=== PATIENT | male | born 2000 | race American Indian/Alaskan Native ===

== ENCOUNTER 2018-08-30 19:21 | Inpatient (IN) | payer MEDICAID ==
--- NOTE | 2018-08-30 19:33 | Emergency Department Report ---
Blank Doc - Documentation Documentation: This is a 18-year-old male that presents with fatigue, dizziness, and weak. T ype 1 DM and has not taken insulin for 3 days. This initial assessment/diagnostic orders/clinical plan/treatment(s) is/are subject to change based on patient's health status, clinical progression and re- assessment by fellow clinical providers in the ED. Further treatment and workup at subsequent clinical providers discretion. Patient/guardians urged not to elope from the ED as their condition may be serious if not clinically assessed and managed. Initial orders include: 1- Patient sent to MAIN ED for further evaluation and treatment 2- labs 3- UA
[2018-08-30 20:04] LABS: Basophils # (Auto) 0.1 K/mm3 (0.0-0.1); Basophils % (Auto) 0.7 % (0.0-1.8); Eosinophils % (Auto) 0.3 % (0.0-4.3); Hematocrit 47.1 % (35.5-45.6); Hemoglobin 15.5 gm/dl (11.8-15.2); Lymphocytes % (Auto) 18.7 % (13.4-35.0); Mean Corpuscular HGB Conc 33 % (32-34); Mean Corpuscular Volume 84 fl (84-94); Monocytes # (Auto) 0.7 K/mm3 (0.0-0.8); Monocytes % (Auto) 6.5 % (0.0-7.3); Platelet Count 259 K/mm3 (140-440); Red Blood Count 5.59 M/mm3 (3.65-5.03); Red Cell Distribution Width 13.7 % (13.2-15.2)
[2018-08-30 20:25] LABS: Bilirubin,Urine NEG (Negative); Blood,Urine NEG (Negative); Color,Urine Straw (Yellow); Mucus,Urine FEW /HPF; Protein,Urine <15 mg/dL mg/dL (Negative); Urobilinogen,Urine < 2.0 mg/dL (<2.0)
[2018-08-30 20:32] LABS: Alanine Aminotransferase 20 units/L (7-56); Albumin 4.9 g/dL (3.9-5); BUN/Creatinine Ratio 12; Blood Urea Nitrogen 16 mg/dL (9-20); Calcium 9.9 mg/dL (8.4-10.2); Hemolysis Index 39
[2018-08-30] MEDS ORDERED: D50W (25GM) Syringe IV PRN (20:42)
--- NOTE | 2018-08-30 20:45 | Emergency Department Report ---
HPI - General Chief Complaint: Hyperglycemia Time Seen by Provider: 08/30/18 19:32 - HPI HPI: 18-year-old -Irish male presents to the emergency department with a complaint of elevated blood sugar, dizziness, fatigue and nausea without vomiting. The patient has been without his insulin for the past 3 days and he takes Epidra and basaglar. He has just recently switched primary care physicians. He has not taken anything for his symptoms prior to presentation. No recent travel or sick contacts at home. ED Past Medical Hx - Social History Smoking Status: Never Smoker Substance Use Type: None ED Review of Systems ROS: Stated complaint: HIGH SUGAR Other details as noted in HPI Comment: All other systems reviewed and negative Constitutional: weakness. denies: chills, fever Eyes: denies: eye pain, vision change ENT: denies: ear pain, throat pain Respiratory: denies: cough, shortness of breath Cardiovascular: denies: chest pain, palpitations Endocrine: increased thirst, increased urine Gastrointestinal: nausea. denies: abdominal pain, vomiting Genitourinary: frequency. denies: dysuria Musculoskeletal: denies: back pain, arthralgia Skin: denies: rash, lesions Neurological: other (dizziness). denies: headache Physical Exam - Physical Exam Vital Signs: Vital Signs 08/30/18 19:30 Temperature 98.4 F Pulse Rate 92 H Respiratory 18 Rate Blood Pressure 127/55 O2 Sat by Pulse 100 Oximetry Physical Exam: GENERAL: The patient is well-developed well-nourished. HENT: Normocephalic. Atraumatic. Patient has moist mucous membranes. EYES: Extraocular motions are intact. NECK: Supple. Trachea is midline. CHEST/LUNGS: Clear to auscultation. There is no respiratory distress noted. HEART/CARDIOVASCULAR: Regular. There is no tachycardia. There is no murmur. ABDOMEN: Abdomen is soft, nontender. Patient has normal bowel sounds. There is no abdominal distention. SKIN: Skin is warm and dry. NEURO: The patient is awake, alert, and oriented. The patient is cooperative. The patient has no focal neurologic deficits. The patient has normal speech. Cranial nerves II through XII grossly intact. MUSCULOSKELETAL: There is no tenderness or deformity. There is no limitation range of motion. There is no evidence of acute injury. ED Course Vital Signs 08/30/18 19:30 Temperature 98.4 F Pulse Rate 92 H Respiratory 18 Rate Blood Pressure 127/55 O2 Sat by Pulse 100 Oximetry ED Medical Decision Making - Lab Data Result diagrams: 08/30/18 19:40 08/30/18 20:46 - Medical Decision Making Patient presents with the complaint of hyperglycemia, dizziness, fatigue and nausea without vomiting. He has been without his diabetes medication for the past 3-4 days. He appears to be in diabetic ketoacidosis with hyperglycemia, elevated anion gap of 34 and venous acidosis of 7.27. Patient was started on insulin drip and will be admitted to the hospitalist service. Accepted for admission by the hospitalist, Dr. Mccartney. - Differential Diagnosis DKA, HHNK, Diabetic Hyperglycemia, Electrolyte abnormalities, dehydration Critical Care Time: No Critical care attestation.: If time is entered above; I have spent that time in minutes in the direct care of this critically ill patient, excluding procedure time. ED Disposition Clinical Impression: Hyperglycemia, High anion gap metabolic acidosis Diabetic ketoacidosis Qualifiers: Diabetes mellitus type: type 1 Diabetes mellitus complication detail: without coma Qualified Code(s): E10.10 - Type 1 diabetes mellitus with ketoacidosis without coma Disposition: OP ADMIT IP TO THIS HOSP Is pt being admited?: Yes Condition: Fair Instructions: Diabetic Ketoacidosis (ED) Time of Disposition: 21:45
[2018-08-30] MEDS ORDERED: D5NS 1,000 ML IV SCH (21:00)
[2018-08-30] MEDS ORDERED: HumuLIN R 100 UNITS in NACL 0.9% 99 ML IV SCH (21:00)
[2018-08-30 21:23] LABS: BUN/Creatinine Ratio 13; Blood Urea Nitrogen 16 mg/dL (9-20); Calcium 9.8 mg/dL (8.4-10.2); Hemolysis Index 15
[2018-08-30] MEDS ORDERED: ZOFRAN IV PRN (21:38)
[2018-08-30] MEDS ORDERED: TYLENOL PO PRN (21:38)
[2018-08-30] MEDS ORDERED: SODIUM CHLORIDE FLUSH SYRINGE 10 ML IV PRN (21:38)
--- NOTE | 2018-08-30 21:53 | History and Physical Report ---
History of Present Illness Chief complaint: Weakness since running out of insulin History of present illness: a 18-year-old man with history of type 1 diabetes. States that he has been out of insulin for 3 days he now presents to the hospital with weakness, polyuria polydipsia, thirst, fatigue dizziness. The patient denies fever, dysuria, cough or pain anywhere. He denies vomiting. He states that he ran out of insulin. He asked his physician to call them in, but his doctor insisted that he come in to clinic and be seen, as he has not followed up in some time. Patient states that he was somewhat careless as he couldn't get an appointment so he just let it slide. Until he started getting very sick prompting him to come into the hospital Patient takes basaglar 50 bid and apidra 20 units ac at home Past medical history type 1 diabetes, insulin-dependent Past surgical history; denies any major surgeries Social history; ongoing smoking of tobacco, denies etoh abuse or illicit drug use Family history; denies any familial diseases Constitutional: no fever, no chills, no night sweats, Generalized weakness, polyuria polydipsia Eyes: bilateral: other (no complaint of visual problems.) Ears, nose, mouth and throat: mouth pain, no ear pain, no ear discharge, no decreased hearing, no nose pain, no nasal congestion, no bleeding gums, no dental pain, no dysphagia, no hoarseness, no sore throat Cardiovascular: no orthopnea, no palpitations, no rapid/irregular heart beat, no phlebitis Respiratory: no cough with sputum, no excessive sputum, no hemoptysis, no wheezing, no pleurisy, no pain Gastrointestinal: abdominal pain, nausea, no vomiting, no diarrhea, no hematochezia, no loss of appetite Rectal: no pain, no incontinence, no bleeding Musculoskeletal: no neck stiffness, no neck pain, no shooting arm pain, no arm numbness/tingling, no low back pain, no shooting leg pain, no leg numbness/tingling Integumentary: no pruritis, no redness, no sores Neurological: no transient paralysis, no paralysis, no weakness Psychiatric: no memory loss, no change in sleep habits, no disorientation Endocrine: no heat intolerance, no polyphagia Hematologic/Lymphatic: no easy bruising, no easy bleeding Allergic/Immunologic: no allergic rhinitis Medications and Allergies Allergies Allergy/AdvReac Type Severity Reaction Status Date / Time No Known Allergies Allergy Verified 08/30/18 20:48 Active Meds: Active Medications Acetaminophen (Tylenol) 650 mg PO Q4H PRN PRN Reason: Pain MILD(1-3)/Fever >100.5/HALL Dextrose (D50w (25gm) Syringe) 0 ml IV PRN PRN PRN Reason: Hypoglycemia Insulin Human Regular 100 (units/ Sodium Chloride) 100 mls @ 5 mls/hr IV TITR FAN; Protocol Last Admin: 08/30/18 21:24 Dose: 5 units/hr, 5 mls/hr Documented by: Sodium Chloride (Nacl 0.9% 1000 Ml) 1,000 mls @ 150 mls/hr IV DIRECT FAN Ceftriaxone Sodium (Rocephin/Ns 1 Gm/50 Ml) 1 gm in 50 mls @ 100 mls/hr IV Q24HR FAN; Protocol Stop: 09/04/18 21:59 Ondansetron HCl (Zofran) 4 mg IV Q4H PRN PRN Reason: Nausea And Vomiting Sodium Chloride (Sodium Chloride Flush Syringe 10 Ml) 10 ml IV BID FAN Sodium Chloride (Sodium Chloride Flush Syringe 10 Ml) 10 ml IV PRN PRN PRN Reason: LINE FLUSH Exam - Constitutional Vitals: Temp Pulse Resp BP Pulse Ox 98.4 F 92 H 16 127/55 99 08/30/18 19:30 08/30/18 19:30 08/30/18 20:43 08/30/18 19:30 08/30/18 20:43 General appearance: Present: mild distress, well-nourished - EENT Eyes: Present: PERRL ENT: hearing intact, clear oral mucosa (dry mucous membranes) - Neck Neck: Present: supple, normal ROM - Respiratory Respiratory effort: normal Respiratory: bilateral: CTA - Cardiovascular Heart Sounds: Present: S1 & S2. Absent: rub, click - Extremities Extremities: pulses symmetrical, No edema Peripheral Pulses: within normal limits - Abdominal General gastrointestinal: Present: soft, non-tender, non-distended, normal bowel sounds Male genitourinary: Present: normal - Integumentary Integumentary: Present: clear, warm, dry - Musculoskeletal Musculoskeletal: gait normal, strength equal bilaterally - Psychiatric Psychiatric: appropriate mood/affect, intact judgment & insight - Neurologic Neurologic: CNII-XII intact, moves all extremities Results - Labs CBC & Chem 7: 08/30/18 19:40 08/30/18 23:25 Labs: Laboratory Last Values WBC 10.6 K/mm3 (4.5-11.0) 08/30/18 19:40 RBC 5.59 M/mm3 (3.65-5.03) H 08/30/18 19:40 Hgb 15.5 gm/dl (11.8-15.2) H 08/30/18 19:40 Hct 47.1 % (35.5-45.6) H 08/30/18 19:40 MCV 84 fl (84-94) 08/30/18 19:40 MCH 28 pg (28-32) 08/30/18 19:40 MCHC 33 % (32-34) 08/30/18 19:40 RDW 13.7 % (13.2-15.2) 08/30/18 19:40 Plt Count 259 K/mm3 (140-440) 08/30/18 19:40 Lymph % (Auto) 18.7 % (13.4-35.0) 08/30/18 19:40 Alexander % (Auto) 6.5 % (0.0-7.3) 08/30/18 19:40 Eos % (Auto) 0.3 % (0.0-4.3) 08/30/18 19:40 Baso % (Auto) 0.7 % (0.0-1.8) 08/30/18 19:40 Lymph # 2.0 K/mm3 (1.2-5.4) 08/30/18 19:40 Alexander # 0.7 K/mm3 (0.0-0.8) 08/30/18 19:40 Eos # 0.0 K/mm3 (0.0-0.4) 08/30/18 19:40 Baso # 0.1 K/mm3 (0.0-0.1) 08/30/18 19:40 Seg Neutrophils % 73.8 % (40.0-70.0) H 08/30/18 19:40 Seg Neutrophils # 7.8 K/mm3 (1.8-7.7) H 08/30/18 19:40 VBG pH 7.270 (7.320-7.420) L 08/30/18 19:40 Sodium 127 mmol/L (137-145) L 08/30/18 20:46 Potassium 4.8 mmol/L (3.6-5.0) 08/30/18 20:46 Chloride 83.0 mmol/L (98-107) L 08/30/18 20:46 Carbon Dioxide 16 mmol/L (22-30) L 08/30/18 20:46 33 mmol/L 08/30/18 20:46 BUN 16 mg/dL (9-20) 08/30/18 20:46 1.2 mg/dL (0.8-1.5) 08/30/18 20:46 Estimated GFR > 60 ml/min 08/30/18 20:46 13 % 08/30/18 20:46 Glucose 357 mg/dL (75-100) H 08/30/18 20:46 POC Glucose 298 (70-105) H 08/30/18 21:17 Calcium 9.8 mg/dL (8.4-10.2) 08/30/18 20:46 Phosphorus 3.50 mg/dL (2.5-4.5) 08/30/18 20:46 Magnesium 1.90 mg/dL (1.7-2.3) 08/30/18 20:46 1.70 mg/dL (0.1-1.2) H 08/30/18 19:40 AST 22 units/L (5-40) 08/30/18 19:40 ALT 20 units/L (7-56) 08/30/18 19:40 80 units/L (35-129) 08/30/18 19:40 8.4 g/dL (6.3-8.2) H 08/30/18 19:40 4.9 g/dL (3.9-5) 08/30/18 19:40 1.4 % 08/30/18 19:40 Straw (Yellow) 08/30/18 20:10 Clear (Clear) 08/30/18 20:10 5.0 (5.0-7.0) 08/30/18 20:10 Ur Specific [place] 1.028 (1.003-1.030) 08/30/18 20:10 <15 mg/dl mg/dL (Negative) 08/30/18 20:10 >=500 mg/dL (Negative) 08/30/18 20:10 80 mg/dL (Negative) 08/30/18 20:10 Neg (Negative) 08/30/18 20:10 Neg (Negative) 08/30/18 20:10 Neg (Negative) 08/30/18 20:10 < 2.0 mg/dL (<2.0) 08/30/18 20:10 Ur Leukocyte Esterase Neg (Negative) 08/30/18 20:10 12.0 /HPF (0.0-6.0) H 08/30/18 20:10 1.0 /HPF (0.0-6.0) 08/30/18 20:10 Few /HPF 08/30/18 20:10 Assessment and Plan Assessment and plan: 19-year-old man who presents with DKA after running out of insulin 3 days UA shows 10 white blood cells Diagnosis Type 1 diabetes, insulin-dependent with DKA UTI?, Mild pyuria non adherence; counseled > 17 mins on preventative health tobacco abuse, counseled > 10 mins on cessation Plan IV fluids, insulin drip, DKA protocol Follow-up urine culture, empiric Rocephin until urine culture is resulted DVT prophylaxis; early ambulation Critical care time 35 minutes
[2018-08-30] MEDS ORDERED: ROCEPHIN/NS 1 GM/50 ML 1 GM/50 ML BAG IV SCH (22:00)
[2018-08-30] MEDS ORDERED: NACL 0.9% 1000 ML 1,000 ML IV SCH (22:00)
[2018-08-30] MEDS: SODIUM CHLORIDE FLUSH SYRINGE 10 ML IV SCH (22:29)
[2018-08-30] MEDS ORDERED: ROCEPHIN/NS 1 GM/50 ML 1 GM/50 ML BAG IV ONE (22:38)
[2018-08-30] MEDS ORDERED: NACL 0.9% 1000 ML 1,000 ML ONE (22:59)
[2018-08-30] MEDS ORDERED: D5/0.45NS 1,000 ML IV SCH (23:00)
[2018-08-31 00:53] LABS: BUN/Creatinine Ratio 12; Blood Urea Nitrogen 14 mg/dL (9-20); Calcium 9.9 mg/dL (8.4-10.2); Hemolysis Index 5
[2018-08-31] MEDS ORDERED: LANTUS SUB-Q SCH (04:07)
[2018-08-31] MEDS ORDERED: NACL 0.9% 1000 ML 1,000 ML IV SCH (05:00)
[2018-08-31 06:48] LABS: BUN/Creatinine Ratio 12; Blood Urea Nitrogen 13 mg/dL (9-20); Calcium 9.1 mg/dL (8.4-10.2); Hemolysis Index 4
[2018-08-31] MEDS ORDERED: HumaLOG SUB-Q SCH ×2 (07:30)
[2018-08-31] MEDS ORDERED: K-DUR PO NR (08:37)
--- NOTE | 2018-08-31 09:23 | Discharge Summary ---
Providers - Providers Date of Admission: 08/30/18 21:39 Attending physician: ALDO LOPEZ MD 08/30/18 21:38 Consult to Physician [CONS] Routine Comment: Consulting Provider: DIANNA ALLEN Physician Instructions: Reason For Exam: icu care 08/30/18 21:42 Consult to Dietitian/Nutrition [CONS] Routine Physician Instructions: Reason For Exam: Reason for Consult: Diet education Primary care physician: JEREMIAS FELIX Hospitalization Reason for admission: DKA Condition: Fair Hospital course: a 18-year-old man with history of type 1 diabetes. States that he has been out of insulin for 3 days he now presents to the hospital with weakness, polyuria polydipsia, thirst, fatigue dizziness. The patient denies fever, dysuria, cough or pain anywhere. He denies vomiting. He states that he ran out of insulin. He asked his physician to call them in, but his doctor insisted that he come in to clinic and be seen, as he has not followed up in some time. Patient states that he was somewhat careless as he couldn't get an appointment so he just let it slide. Until he started getting very sick prompting him to come into the hospital. Patient was admitted to ICU and was treated for DKA according to DKA protocol . Anion gap resolved and patient was doing well and discharged home. I refill his home insulin regimen but he couldn't afford and change to 70/30. advised to have follow up with PCP. Disposition: DC-01 TO HOME OR SELFCARE Time spent for discharge: 32 minutes - Discharge Diagnoses (1) Diabetic ketoacidosis Status: Acute (2) High anion gap metabolic acidosis Status: Acute (3) Hyperglycemia Status: Acute Core Measure Documentation - Palliative Care Palliative Care/ Comfort Measures: Not Applicable - Core Measures Any of the following diagnoses?: none Exam - Constitutional Vitals: Temp Pulse Resp BP Pulse Ox 97.6 F 69 12 112/55 100 08/31/18 08:00 08/31/18 08:41 08/31/18 08:41 08/31/18 08:41 08/30/18 23:00 General appearance: Present: no acute distress, well-nourished - EENT Eyes: Present: PERRL ENT: hearing intact, clear oral mucosa - Neck Neck: Present: supple, normal ROM - Respiratory Respiratory effort: normal Respiratory: bilateral: CTA - Cardiovascular Heart Sounds: Present: S1 & S2. Absent: rub, click - Extremities Extremities: pulses symmetrical, No edema Peripheral Pulses: within normal limits - Abdominal General gastrointestinal: Present: soft, non-tender, non-distended, normal bowel sounds - Integumentary Integumentary: Present: clear, warm, dry - Musculoskeletal Musculoskeletal: gait normal, strength equal bilaterally - Psychiatric Psychiatric: appropriate mood/affect, intact judgment & insight - Neurologic Neurologic: CNII-XII intact, moves all extremities Plan Activity: no restrictions Weight Bearing Status: Full Weight Bearing Diet: diabetic Follow up with: JEREMIAS FELIX MD [Primary Care Provider] - 3-5 Days
[2018-08-31] MEDS: SODIUM CHLORIDE FLUSH SYRINGE 10 ML IV SCH (10:00)
[2018-08-31 10:30] VITALS: BP 128/63
--- NOTE | 2018-08-31 11:01 | Consultation ---
History of Present Illness - Reason for Consult Consult date: 08/31/18 DKA Requesting physician: ALDO LOPEZ - History of Present Illness 18 y/o male admitted with DKA. Past History Past Medical History: diabetes Past Surgical History: No surgical history Social history: no significant social history Family history: no significant family history Medications and Allergies Allergies Allergy/AdvReac Type Severity Reaction Status Date / Time No Known Allergies Allergy Verified 08/30/18 20:48 Home Medications Medication Instructions Recorded Confirmed Last Taken Type Insulin Glargine,Hum.rec.anlog 50 unit SQ BID #1 insuln.pen 08/31/18 Unknown Rx [Basaglar Kwikpen U-100] Insulin Glulisine [Apidra] 20 units MC AC #2 vial 08/31/18 Unknown Rx Active Meds: Active Medications Acetaminophen (Tylenol) 650 mg PO Q4H PRN PRN Reason: Pain MILD(1-3)/Fever >100.5/HALL Dextrose (D50w (25gm) Syringe) 0 ml IV PRN PRN PRN Reason: Hypoglycemia Ceftriaxone Sodium (Rocephin/Ns 1 Gm/50 Ml) 1 gm in 50 mls @ 100 mls/hr IV Q24H [facility]; Protocol Last Infusion: 08/30/18 23:08 Dose: Infused Documented by: Sodium Chloride (Nacl 0.9% 1000 Ml) 1,000 mls @ 150 mls/hr IV DIRECT [facility] Last Admin: 08/31/18 05:45 Dose: 150 mls/hr Documented by: Insulin Glargine (Lantus) 50 units SUB-Q BID [facility] Last Admin: 08/31/18 05:42 Dose: 50 units Documented by: Insulin Human Lispro (Humalog) 20 unit SUB-Q AC FAN Last Admin: 08/31/18 07:30 Dose: 20 unit Documented by: Insulin Human Lispro (Humalog) 0 unit SUB-Q ACHS [facility]; Protocol Last Admin: 08/31/18 07:30 Dose: Not Given Documented by: Ondansetron HCl (Zofran) 4 mg IV Q4H PRN PRN Reason: Nausea And Vomiting Sodium Chloride (Sodium Chloride Flush Syringe 10 Ml) 10 ml IV BID [facility] Last Admin: 08/30/18 22:29 Dose: 10 ml Documented by: Sodium Chloride (Sodium Chloride Flush Syringe 10 Ml) 10 ml IV PRN PRN PRN Reason: LINE FLUSH Review of Systems All systems: negative Exam - Constitutional Vitals: Temp Pulse Resp BP Pulse Ox 97.6 F 73 17 128/63 100 08/31/18 08:00 08/31/18 10:21 08/31/18 10:21 08/31/18 10:08/30/18 23:00 General appearance: Present: no acute distress - EENT Eyes: Present: PERRL, EOM intact ENT: hearing intact, clear oral mucosa - Neck Neck: Present: supple, normal ROM - Respiratory Respiratory effort: normal Respiratory: bilateral: CTA - Cardiovascular Rhythm: regular Heart Sounds: Present: S1 & S2 - Abdominal General gastrointestinal: Present: soft, non-tender, normal bowel sounds Results - Labs CBC & Chem 7: 08/30/18 19:40 08/31/18 05:00 Labs: Abnormal lab results 08/30/18 08/30/18 08/30/18 Range/Units 19:37 19:40 19:40 RBC 5.59 H (3.65-5.03) M/mm3 Hgb 15.5 H (11.8-15.2) gm/dl Hct 47.1 H (35.5-45.6) % Seg Neutrophils % 73.8 H (40.0-70.0) % Seg Neutrophils # 7.8 H (1.8-7.7) K/mm3 VBG pH (7.320-7.420) Sodium 129 L (137-145) mmol/L Potassium (3.6-5.0) mmol/L Chloride 82.2 L (98-107) mmol/L Carbon Dioxide 17 L (22-30) mmol/L Glucose 375 H (75-100) mg/dL POC Glucose 332 H (70-105) Hemoglobin A1c (4-6) % Total Bilirubin 1.70 H (0.1-1.2) mg/dL Total Protein 8.4 H (6.3-8.2) g/dL Urine WBC (Auto) (0.0-6.0) /HPF 08/30/18 08/30/18 08/30/18 Range/Units 19:40 20:10 20:46 RBC (3.65-5.03) M/mm3 Hgb (11.8-15.2) gm/dl Hct (35.5-45.6) % Seg Neutrophils % (40.0-70.0) % Seg Neutrophils # (1.8-7.7) K/mm3 VBG pH 7.270 L (7.320-7.420) Sodium 127 L (137-145) mmol/L Potassium (3.6-5.0) mmol/L Chloride 83.0 L (98-107) mmol/L Carbon Dioxide 16 L (22-30) mmol/L Glucose 357 H (75-100) mg/dL POC Glucose (70-105) Hemoglobin A1c (4-6) % Total Bilirubin (0.1-1.2) mg/dL Total Protein (6.3-8.2) g/dL Urine WBC (Auto) 12.0 H (0.0-6.0) /HPF 08/30/18 08/30/18 08/30/18 Range/Units 21:17 22:34 23:25 RBC (3.65-5.03) M/mm3 Hgb (11.8-15.2) gm/dl Hct (35.5-45.6) % Seg Neutrophils % (40.0-70.0) % Seg Neutrophils # (1.8-7.7) K/mm3 VBG pH (7.320-7.420) Sodium (137-145) mmol/L Potassium (3.6-5.0) mmol/L Chloride 92.0 L (98-107) mmol/L Carbon Dioxide 21 L (22-30) mmol/L Glucose 175 H (75-100) mg/dL POC Glucose 298 H 278 H (70-105) Hemoglobin A1c (4-6) % Total Bilirubin (0.1-1.2) mg/dL Total Protein (6.3-8.2) g/dL Urine WBC (Auto) (0.0-6.0) /HPF 08/30/18 08/30/18 08/31/18 Range/Units 23:25 23:30 01:37 RBC (3.65-5.03) M/mm3 Hgb (11.8-15.2) gm/dl Hct (35.5-45.6) % Seg Neutrophils % (40.0-70.0) % Seg Neutrophils # (1.8-7.7) K/mm3 VBG pH (7.320-7.420) Sodium (137-145) mmol/L Potassium (3.6-5.0) mmol/L Chloride (98-107) mmol/L Carbon Dioxide (22-30) mmol/L Glucose (75-100) mg/dL POC Glucose 192 H 190 H (70-105) Hemoglobin A1c 16.1 H (4-6) % Total Bilirubin (0.1-1.2) mg/dL Total Protein (6.3-8.2) g/dL Urine WBC (Auto) (0.0-6.0) /HPF 08/31/18 08/31/18 08/31/18 Range/Units 03:28 04:27 05:00 RBC (3.65-5.03) M/mm3 Hgb (11.8-15.2) gm/dl Hct (35.5-45.6) % Seg Neutrophils % (40.0-70.0) % Seg Neutrophils # (1.8-7.7) K/mm3 VBG pH (7.320-7.420) Sodium 136 L (137-145) mmol/L Potassium 3.2 L D (3.6-5.0) mmol/L Chloride 94.9 L (98-107) mmol/L Carbon Dioxide (22-30) mmol/L Glucose 149 H (75-100) mg/dL POC Glucose 183 H 124 H (70-105) Hemoglobin A1c (4-6) % Total Bilirubin (0.1-1.2) mg/dL Total Protein (6.3-8.2) g/dL Urine WBC (Auto) (0.0-6.0) /HPF 08/31/18 08/31/18 Range/Units 05:40 06:25 RBC (3.65-5.03) M/mm3 Hgb (11.8-15.2) gm/dl Hct (35.5-45.6) % Seg Neutrophils % (40.0-70.0) % Seg Neutrophils # (1.8-7.7) K/mm3 VBG pH (7.320-7.420) Sodium (137-145) mmol/L Potassium (3.6-5.0) mmol/L Chloride (98-107) mmol/L Carbon Dioxide (22-30) mmol/L Glucose (75-100) mg/dL POC Glucose 192 H 181 H (70-105) Hemoglobin A1c (4-6) % Total Bilirubin (0.1-1.2) mg/dL Total Protein (6.3-8.2) g/dL Urine WBC (Auto) (0.0-6.0) /HPF Assessment and Plan 18 y/o male with DKA 1. Off insulin drip. Secondary to hypoglycemia. Gap based on last BMP has not closed but patient has eaten and tolerated breakfast 2. Patient discharged via IMS service 3. Needs diabetic education and counseling.
== END 2018-08-31 11:00 | disposition home or self-care (01) | DRG 638 ==
LOC: ED 19:21 → CC1 21:39
PROVIDERS: ADMIT Internal Medicine; ATTEND Internal Medicine
DX: E10.10 Type 1 diabetes mellitus with ketoacidosis without coma (principal); N39.0 Urinary tract infection, site not specified; F17.200 Nicotine dependence, unspecified, uncomplicated; Z71.6 Tobacco abuse counseling; Z79.4 Long term (current) use of insulin
CPT/HCPCS: 36415; 80048; 80053; 81001; 82805; 82962; 83036; 83735; 84100; 85025; 87086; G0378; J0696; J1815; J7030; J7042

== ENCOUNTER 2018-09-03 11:17 | Inpatient (IN) | payer MEDICAID ==
[2018-09-03] MEDS ORDERED: NACL 0.9% 1000 ML 2,000 ML IV ONE (11:30)
--- NOTE | 2018-09-03 11:32 | Event Note ---
ED Screening Note Date of service: 09/03/18 Time: 11:27 ED Screening Note: 18 y/o male Type 1 DM comes in for elevated blood sugar. has not been taking his insulin. This initial assessment/diagnostic orders/clinical plan/treatment(s) is/are subject to change based on patients health status, clinical progression and re- assessment by fellow clinical providers in the ED. Further treatment and workup at subsequent clinical providers discretion. Patient/guardian urged not to elope from the ED as their condition may be serious if not clinically assessed and managed. Initial orders include:
[2018-09-03] MEDS ORDERED: ZOFRAN IV ONE (11:56)
--- NOTE | 2018-09-03 11:57 | Emergency Department Report ---
ED General Adult HPI - General Chief complaint: Hyperglycemia Stated complaint: SUGAR HIGH Time Seen by Provider: 09/03/18 11:26 Source: patient, RN notes reviewed, old records reviewed Mode of arrival: Ambulatory Limitations: Physical Limitation - History of Present Illness Initial comments: This is a 18-year-old gentleman, who is not known to this provider previously. The patient reportedly has a past medical history of type 1 diabetes. The patient was recently admitted to this hospital for diabetic ketoacidosis. He was treated as for the DKA protocol. He was subsequently discharged with prescriptions for insulin apidra and insulin glargine. He states that the insulin apidra was not covered by his insurance company, and the prescription was switched to Humulin 70/30. He reports that he was not discharged with needles, and he was not able to give himself his insulin. He reports that he was able to get his glargine insulin prescription filled this morning, gave himself 60 units this morning. He presents to the emergency room with a complaint of nausea, vomiting, resolved shortness of breath, and weakness. His nausea intermittent, emesis is nonbloody, nonbilious. He endorses no fever, no nasal bleeding, positive palpitations, resolved shortness of breath, no irritative urinary symptoms, no leg pain, no leg swelling. He was given IV fluids and nausea medicine in the emergency room, which improved his symptoms. His symptoms have been constant since 5:00 this morning, they're painless, and they do not radiate anywhere. Th ere is no posterior leg pain or leg swelling. -: Sudden Quality: other Consistency: now resolved Improves with: movement Worsens with: other - Related Data Home Medications Medication Instructions Recorded Confirmed Last Taken Insulin Glargine,Hum.rec.anlog 50 unit SUB-Q BID 09/03/18 09/03/18 Unknown [Basaglar Kwikpen U-100] Insulin NPH Hum/Reg Insulin Hm 50 units SUB-Q BID 09/03/18 09/03/18 Unknown [HumuLIN 70-30 Vial] Allergies Allergy/AdvReac Type Severity Reaction Status Date / Time No Known Allergies Allergy Verified 09/03/18 11:18 ED Review of Systems ROS: Stated complaint: SUGAR HIGH Other details as noted in HPI Constitutional: malaise, weakness Eyes: denies: eye discharge ENT: denies: epistaxis Respiratory: shortness of breath Cardiovascular: palpitations Gastrointestinal: nausea, vomiting Genitourinary: denies: dysuria Musculoskeletal: denies: back pain, arthralgia, myalgia Skin: denies: lesions Neurological: weakness Psychiatric: anxiety ED Past Medical Hx - Past Medical History Hx Congestive Heart Failure: No Hx Diabetes: Yes Hx Asthma: No Hx COPD: No - Surgical History Past Surgical History?: No - Social History Smoking Status: Never Smoker Substance Use Type: None - Medications Home Medications: Home Medications Medication Instructions Recorded Confirmed Last Taken Type Insulin Glargine,Hum.rec.anlog 50 unit SUB-Q BID 09/03/18 09/03/18 Unknown History [Basaglar Kwikpen U-100] Insulin NPH Hum/Reg Insulin Hm 50 units SUB-Q BID 09/03/18 09/03/18 Unknown History [HumuLIN 70-30 Vial] ED Physical Exam - General Limitations: No Limitations General appearance: alert, anxious, in distress - Head Head exam: Present: atraumatic, normocephalic - Eye Eye exam: Present: normal appearance, EOMI. Absent: nystagmus - ENT ENT exam: Present: normal orophraynx, mucous membranes dry, normal external ear exam - Neck Neck exam: Present: normal inspection, full ROM. Absent: tenderness, m eningismus - Respiratory Respiratory exam: Present: normal lung sounds bilaterally. Absent: respiratory distress - Cardiovascular Cardiovascular Exam: Present: normal rhythm, tachycardia, normal heart sounds. Absent: systolic murmur, diastolic murmur, rubs, gallop - GI/Abdominal GI/Abdominal exam: Present: soft. Absent: distended, tenderness, guarding, rebound, rigid, pulsatile mass - Rectal Rectal exam: Present: deferred - Extremities Exam Extremities exam: Present: normal inspection, full ROM, other (2+ pulses noted in the bilateral upper, lower extremities. Compartments soft. No long bony t enderness. The pelvis is stable.). Absent: pedal edema, joint swelling, calf tenderness - Back Exam Back exam: Present: normal inspection, full ROM. Absent: tenderness, CVA tenderness (R), CVA tenderness (L), paraspinal tenderness, vertebral tenderness - Neurological Exam Neurological exam: Present: alert, oriented X3, other (Extraocular movements intact. Tongue midline. No facial droop. Facial sensation intact to light touch in the V1, V2, V3 distribution bilaterally. 5 and 5 strength in 4 extremities.. Sensation is intact to light touch in 4 extremities.). Absent: motor sensory deficit - Psychiatric Psychiatric exam: Present: anxious - Skin Skin exam: Present: warm, dry, intact, normal color. Absent: rash ED Course Vital Signs 09/03/18 09/03/18 09/03/18 11:26 11:34 11:45 Temperature 97.5 F L Pulse Rate 104 H 89 Respiratory 18 25 H Rate Blood Pressure 128/54 132/73 O2 Sat by Pulse 98 99 100 Oximetry 09/03/18 09/03/18 09/03/18 12:00 12:15 12:30 Temperature Pulse Rate 82 79 79 Respiratory 24 24 26 H Rate Blood Pressure 136/66 129/56 132/58 O2 Sat by Pulse 100 94 100 Oximetry 09/03/18 09/03/18 09/03/18 12:45 13:00 13:15 Temperature Pulse Rate 85 82 80 Respiratory 22 21 19 Rate Blood Pressure 132/61 136/63 132/62 O2 Sat by Pulse 100 100 100 Oximetry 09/03/18 13:30 Temperature Pulse Rate 84 Respiratory 21 Rate Blood Pressure 129/66 O2 Sat by Pulse 100 Oximetry - Consultations Consultation #1: 09/03/18 14:11 Dr Walker agrees with management ED Medical Decision Making - Lab Data Result diagrams: 09/03/18 11:37 09/03/18 13:00 Vital Signs 09/03/18 09/03/18 09/03/18 11:26 11:34 11:45 Temperature 97.5 F L Pulse Rate 104 H 89 Respiratory 18 25 H Rate Blood Pressure 128/54 132/73 O2 Sat by Pulse 98 99 100 Oximetry Lab Results 09/03/18 09/03/18 09/03/18 Range/Units 11:28 11:37 11:37 WBC 11.1 H (4.5-11.0) K/mm3 RBC 5.90 H (3.65-5.03) M/mm3 Hgb 16.3 H (11.8-15.2) gm/dl Hct 50.2 H (35.5-45.6) % MCV 85 (84-94) fl MCH 28 (28-32) pg MCHC 33 (32-34) % RDW 14.2 (13.2-15.2) % Plt Count 313 (140-440) K/mm3 Lymph % (Auto) 13.2 L (13.4-35.0) % [place] % (Auto) 5.2 (0.0-7.3) % Eos % (Auto) 0.1 (0.0-4.3) % Baso % (Auto) 0.5 (0.0-1.8) % Lymph # 1.5 (1.2-5.4) K/mm3 [place] # 0.6 (0.0-0.8) K/mm3 Eos # 0.0 (0.0-0.4) K/mm3 Baso # 0.1 (0.0-0.1) K/mm3 Seg Neutrophils % 81.0 H (40.0-70.0) % Seg Neutrophils # 9.0 H (1.8-7.7) K/mm3 VBG pH (7.320-7.420) Sodium 136 L (137-145) mmol/L Potassium 5.0 D (3.6-5.0) mmol/L Chloride 88.4 L (98-107) mmol/L Carbon Dioxide 9 L* D (22-30) mmol/L Anion Gap 44 mmol/L BUN 21 H (9-20) mg/dL Creatinine 1.6 H (0.8-1.5) mg/dL Estimated GFR > 60 ml/min BUN/Creatinine Ratio 13 % Glucose 478 H (75-100) mg/dL POC Glucose 410 H (70-105) Calcium 10.3 H (8.4-10.2) mg/dL Magnesium 2.10 (1.7-2.3) mg/dL Total Bilirubin 1.00 (0.1-1.2) mg/dL AST 18 (5-40) units/L ALT 20 (7-56) units/L Alkaline Phosphatase 87 (35-129) units/L Total Creatine Kinase 305 H (55-170) units/L Total Protein 8.6 H (6.3-8.2) g/dL Albumin 5.0 (3.9-5) g/dL Albumin/Globulin Ratio 1.4 % 09/03/18 Range/Units 11:37 WBC (4.5-11.0) K/mm3 RBC (3.65-5.03) M/mm3 Hgb (11.8-15.2) gm/dl Hct (35.5-45.6) % MCV (84-94) fl MCH (28-32) pg MCHC (32-34) % RDW (13.2-15.2) % Plt Count (140-440) K/mm3 Lymph % (Auto) (13.4-35.0) % [place] % (Auto) (0.0-7.3) % Eos % (Auto) (0.0-4.3) % Baso % (Auto) (0.0-1.8) % Lymph # (1.2-5.4) K/mm3 [place] # (0.0-0.8) K/mm3 Eos # (0.0-0.4) K/mm3 Baso # (0.0-0.1) K/mm3 Seg Neutrophils % (40.0-70.0) % Seg Neutrophils # (1.8-7.7) K/mm3 VBG pH 7.173 L* (7.320-7.420) Sodium (137-145) mmol/L Potassium (3.6-5.0) mmol/L Chloride (98-107) mmol/L Carbon Dioxide (22-30) mmol/L Anion Gap mmol/L BUN (9-20) mg/dL Creatinine (0.8-1.5) mg/dL Estimated GFR ml/min BUN/Creatinine Ratio % Glucose (75-100) mg/dL POC Glucose (70-105) Calcium (8.4-10.2) mg/dL Magnesium (1.7-2.3) mg/dL Total Bilirubin (0.1-1.2) mg/dL AST (5-40) units/L ALT (7-56) units/L Alkaline Phosphatase (35-129) units/L Total Creatine Kinase (55-170) units/L Total Protein (6.3-8.2) g/dL Albumin (3.9-5) g/dL Albumin/Globulin Ratio % - EKG Data -: EKG Interpreted by Mn EKG shows normal: sinus rhythm Rate: normal - EKG Data 09/03/18 13:12 This is a normal sinus rhythm, 75 bpm, normal axis, normal intervals, high left ventricular voltage, there is no endorsement of chest pain, this EKG is not consistent with ST elevation myocardial infarction. - Radiology Data Radiology results: report reviewed, image reviewed X-ray of the chest is negative for acute disease - Medical Decision Making Differential diagnosis, including but not limited to: Diabetic ketoacidosis, dehydration, electrolyte derangement, medication noncompliance secondary to insurance issues Assessment and plan: 18-year-old gentleman, with resolved tachycardia, not hypoxic, low risk by well's criteria, no leg pain, no leg swelling, no physical exam evidence to support DVT, with evidence of diabetic ketoacidosis, manifested by tachycardia, anion gap acidosis of 44, bicarbonate, hyperglycemia, acidosis, and renal insufficiency. Patient meets criteria for hospitalization. We will initiate the patient on DKA protocol with insulin push, insulin drip, IV fluids. I discussed this with the patient who verbalizes understanding. Case management consult has been requested to facilitate discharge planning once metabolic derangement has been corrected. Critical care physician insulation batting machine operator has been paged to arrange for placement into the intensive care unit. Case has been presented to the Hospital physician, Dr. Isis Baeza, who accepts the patient Critical Care Time: Yes Critical care time in (mins) excluding proc time.: 35 Critical care attestation.: If time is entered above; I have spent that time in minutes in the direct care of this critically ill patient, excluding procedure time. ED Disposition Clinical Impression: Diabetic ketoacidosis, EMILY (acute kidney injury) Disposition: -09 OP ADMIT IP TO THIS HOSP Is pt being admited?: Yes Condition: Serious
[2018-09-03 12:21] LABS: Basophils # (Auto) 0.1 K/mm3 (0.0-0.1); Basophils % (Auto) 0.5 % (0.0-1.8); Eosinophils % (Auto) 0.1 % (0.0-4.3); Hematocrit 50.2 % (35.5-45.6); Hemoglobin 16.3 gm/dl (11.8-15.2); Lymphocytes # (Auto) 1.5 K/mm3 (1.2-5.4); Lymphocytes % (Auto) 13.2 % (13.4-35.0); Mean Corpuscular HGB Conc 33 % (32-34); Mean Corpuscular Volume 85 fl (84-94); Monocytes # (Auto) 0.6 K/mm3 (0.0-0.8); Monocytes % (Auto) 5.2 % (0.0-7.3); Platelet Count 313 K/mm3 (140-440); Red Cell Distribution Width 14.2 % (13.2-15.2)
--- NOTE | 2018-09-03 12:23 | XRay Report ---
AP CHEST: HISTORY: Short of breath, palpitations AP view of the chest demonstrates a normal mediastinal and cardiac contour with clear lungs and normal bony and soft tissue structures. IMPRESSION: Unremarkable AP chest.
[2018-09-03 12:39] LABS: Alanine Aminotransferase 20 units/L (7-56); BUN/Creatinine Ratio 13; Blood Urea Nitrogen 21 mg/dL (9-20); Calcium 10.3 mg/dL (8.4-10.2); Hemolysis Index 22
[2018-09-03] MEDS ORDERED: D50W (25GM) Syringe IV PRN ×2 (12:44→20:46)
[2018-09-03] MEDS ORDERED: SODIUM CHLORIDE FLUSH SYRINGE 10 ML IV NR (13:00)
[2018-09-03] MEDS ORDERED: HumuLIN R IV ONE (13:12)
[2018-09-03 13:30] LABS: BUN/Creatinine Ratio 14; Blood Urea Nitrogen 19 mg/dL (9-20); Calcium 9.4 mg/dL (8.4-10.2); Hemolysis Index 22
[2018-09-03] MEDS: HumuLIN R 100 UNITS in NACL 0.9% 99 ML IV SCH ×2 (13:42→15:02)
[2018-09-03 16:23] LABS: BUN/Creatinine Ratio 12; Blood Urea Nitrogen 17 mg/dL (9-20); Calcium 9.5 mg/dL (8.4-10.2); Hemolysis Index 11
[2018-09-03 16:48] LABS: Bilirubin,Urine NEG (Negative); Blood,Urine SM (Negative); Color,Urine Straw (Yellow); Mucus,Urine FEW /HPF; Urobilinogen,Urine < 2.0 mg/dL (<2.0)
[2018-09-03 17:07] LABS: BUN/Creatinine Ratio 12; Blood Urea Nitrogen 17 mg/dL (9-20); Calcium 8.8 mg/dL (8.4-10.2); Hemolysis Index 14
[2018-09-03 20:31] LABS: BUN/Creatinine Ratio 11; Blood Urea Nitrogen 16 mg/dL (9-20); Calcium 9.3 mg/dL (8.4-10.2); Hemolysis Index 7
[2018-09-03] MEDS ORDERED: MORPHINE IV PRN (20:44)
[2018-09-03] MEDS ORDERED: SODIUM CHLORIDE FLUSH SYRINGE 10 ML IV PRN (20:44)
[2018-09-03] MEDS ORDERED: ZOFRAN IV PRN (20:44)
[2018-09-03] MEDS ORDERED: REGLAN IV PRN (20:44)
[2018-09-03] MEDS ORDERED: TYLENOL PO PRN (20:44)
--- NOTE | 2018-09-03 20:44 | History and Physical Report ---
History of Present Illness Date of examination: 09/03/18 Date of admission: 09/03/18 13:15 Medications and Allergies Allergies Allergy/AdvReac Type Severity Reaction Status Date / Time No Known Allergies Allergy Verified 09/03/18 11:18 Home Medications Medication Instructions Recorded Confirmed Last Taken Type Insulin Glargine,Hum.rec.anlog 50 unit SUB-Q BID 09/03/18 09/03/18 Unknown History [Basaglar Kwikpen U-100] Insulin NPH Hum/Reg Insulin Hm 50 units SUB-Q BID 09/03/18 09/03/18 Unknown History [HumuLIN 70-30 Vial] Active Meds: Active Medications Dextrose (D50w (25gm) Syringe) 0 ml IV PRN PRN PRN Reason: Hypoglycemia Insulin Human Regular 100 (units/ Sodium Chloride) 100 mls @ 1 mls/hr IV TITR FAN; Protocol Last Titration: 09/03/18 20:00 Dose: 2 units/hr, 2 mls/hr Documented by: Potassium Chloride/Dextrose/Sod Cl (D5w/0.45% Nacl/Kcl 20 Meq) 20 meq in 1,000 mls @ 125 mls/hr IV DIRECT FAN Sodium Chloride (Sodium Chloride Flush Syringe 10 Ml) 10 ml IV PRN NR Stop: 09/04/18 12:59 Exam - Constitutional Vitals: Temp Pulse Resp BP Pulse Ox 97.5 F L 73 17 113/58 100 09/03/18 11:26 09/03/18 20:15 09/03/18 20:15 09/03/18 20:15 09/03/18 20:15 Results - Labs CBC & Chem 7: 09/03/18 11:37 09/03/18 19:51 Labs: Laboratory Last Values WBC 11.1 K/mm3 (4.5-11.0) H 09/03/18 11:37 RBC 5.90 M/mm3 (3.65-5.03) H 09/03/18 11:37 Hgb 16.3 gm/dl (11.8-15.2) H 09/03/18 11:37 Hct 50.2 % (35.5-45.6) H 09/03/18 11:37 MCV 85 fl (84-94) 09/03/18 11:37 MCH 28 pg (28-32) 09/03/18 11:37 MCHC 33 % (32-34) 09/03/18 11:37 RDW 14.2 % (13.2-15.2) 09/03/18 11:37 Plt Count 313 K/mm3 (140-440) 09/03/18 11:37 Lymph % (Auto) 13.2 % (13.4-35.0) L 09/03/18 11:37 [place] % (Auto) 5.2 % (0.0-7.3) 09/03/18 11:37 Eos % (Auto) 0.1 % (0.0-4.3) 09/03/18 11:37 Baso % (Auto) 0.5 % (0.0-1.8) 09/03/18 11:37 Lymph # 1.5 K/mm3 (1.2-5.4) 09/03/18 11:37 [place] # 0.6 K/mm3 (0.0-0.8) 09/03/18 11:37 Eos # 0.0 K/mm3 (0.0-0.4) 09/03/18 11:37 Baso # 0.1 K/mm3 (0.0-0.1) 09/03/18 11:37 Seg Neutrophils % 81.0 % (40.0-70.0) H 09/03/18 11:37 Seg Neutrophils # 9.0 K/mm3 (1.8-7.7) H 09/03/18 11:37 VBG pH 7.173 (7.320-7.420) L* 09/03/18 11:37 Sodium 137 mmol/L (137-145) 09/03/18 19:51 Potassium 4.8 mmol/L (3.6-5.0) 09/03/18 19:51 Chloride 101.1 mmol/L (98-107) 09/03/18 19:51 Carbon Dioxide 16 mmol/L (22-30) L 09/03/18 19:51 25 mmol/L 09/03/18 19:51 BUN 16 mg/dL (9-20) 09/03/18 19:51 1.4 mg/dL (0.8-1.5) 09/03/18 19:51 Estimated GFR > 60 ml/min 09/03/18 19:51 11 % 09/03/18 19:51 Glucose 144 mg/dL (75-100) H 09/03/18 19:51 POC Glucose 153 (70-105) H 09/03/18 20:11 Calcium 9.3 mg/dL (8.4-10.2) 09/03/18 19:51 Magnesium 2.10 mg/dL (1.7-2.3) 09/03/18 11:37 1.00 mg/dL (0.1-1.2) 09/03/18 11:37 AST 18 units/L (5-40) 09/03/18 11:37 ALT 20 units/L (7-56) 09/03/18 11:37 87 units/L (35-129) 09/03/18 11:37 305 units/L (55-170) H 09/03/18 11:37 8.6 g/dL (6.3-8.2) H 09/03/18 11:37 5.0 g/dL (3.9-5) 09/03/18 11:37 1.4 % 09/03/18 11:37 Straw (Yellow) 09/03/18 16:24 Clear (Clear) 09/03/18 16:24 5.0 (5.0-7.0) 09/03/18 16:24 Ur Specific [place] 1.024 (1.003-1.030) 09/03/18 16:24 30 mg/dl mg/dL (Negative) 09/03/18 16:24 >=500 mg/dL (Negative) 09/03/18 16:24 80 mg/dL (Negative) 09/03/18 16:24 Sm (Negative) 09/03/18 16:24 Neg (Negative) 09/03/18 16:24 Neg (Negative) 09/03/18 16:24 < 2.0 mg/dL (<2.0) 09/03/18 16:24 Ur Leukocyte Esterase Tr (Negative) 09/03/18 16:24 11.0 /HPF (0.0-6.0) H 09/03/18 16:24 3.0 /HPF (0.0-6.0) 09/03/18 16:24 U Epithel Cells (Auto) 1.0 /HPF (0-13.0) 09/03/18 16:24 Few /HPF 09/03/18 16:24
[2018-09-03] MEDS ORDERED: HumuLIN R 100 UNITS in NACL 0.9% 99 ML IV SCH (21:00)
[2018-09-03] MEDS ORDERED: KCL 10MEQ/100ML 10 MEQ/100 ML BAG IV SCH ×2 (21:00)
[2018-09-03] MEDS: D5W/0.45% NACL/KCL 20 MEQ 20 MEQ/1,000 ML BAG IV SCH (21:15)
[2018-09-03 21:28] LABS: BUN/Creatinine Ratio 10; Blood Urea Nitrogen 14 mg/dL (9-20); Calcium 9.8 mg/dL (8.4-10.2); Hemolysis Index 1
[2018-09-03] MEDS: PEPCID IV SCH (22:17)
[2018-09-03] MEDS: SODIUM CHLORIDE FLUSH SYRINGE 10 ML IV SCH (22:18)
[2018-09-03 23:43] LABS: BUN/Creatinine Ratio 12; Blood Urea Nitrogen 15 mg/dL (9-20); Calcium 9.6 mg/dL (8.4-10.2); Hemolysis Index 16
[2018-09-04 01:37] LABS: BUN/Creatinine Ratio 13; Blood Urea Nitrogen 14 mg/dL (9-20); Calcium 9.3 mg/dL (8.4-10.2); Hemolysis Index 1
[2018-09-04] MEDS ORDERED: HumuLIN R ONE (02:22)
[2018-09-04 03:47] LABS: BUN/Creatinine Ratio 13; Blood Urea Nitrogen 14 mg/dL (9-20); Calcium 8.9 mg/dL (8.4-10.2); Hemolysis Index 5
[2018-09-04] MEDS: HumuLIN R SUB-Q SCH ×2 (04:15→06:12)
[2018-09-04] MEDS: D5W/0.45% NACL/KCL 20 MEQ 20 MEQ/1,000 ML BAG IV SCH ×2 (04:17→12:40)
[2018-09-04 05:51] LABS: BUN/Creatinine Ratio 12; Blood Urea Nitrogen 14 mg/dL (9-20)
[2018-09-04 05:52] LABS: Hemolysis Index 22
--- NOTE | 2018-09-04 07:05 | Event Note ---
Date: 09/03/18 See H/p in reports DKA
--- NOTE | 2018-09-04 07:06 | Consultation ---
History of Present Illness Consult date: 09/04/18 Requesting physician: AKASH BURR Reason for consult: other (Diabetic ketoacidosis) History of present illness: This is a 18-year-old gentleman, who is not known to this provider previously. The patient reportedly has a past medical history of type 1 diabetes. The patient was recently admitted to this hospital for diabetic ketoacidosis. He was treated as for the DKA protocol. He was subsequently discharged with prescriptions for insulin apidra and insulin glargine. He states that the insulin apidra was not covered by his insurance company, and the prescription was switched to Humulin 70/30. He reports that he was not discharged with needles, and he was not able to give himself his insulin. He reports that he was able to get his glargine insulin prescription filled this morning, gave himself 60 units this morning. He presents to the emergency room with a complaint of nausea, vomiting, resolved shortness of breath, and weakness. His nausea intermittent, emesis is nonbloody, nonbilious. He endorses no fever, no nasal bleeding, positive palpitations, resolved shortness of breath, no irritative urinary symptoms, no leg pain, no leg swelling. He was given IV fluids and nausea medicine in the emergency room, which improved his symptoms. His symptoms have been constant since 5:00 this morning, they're painless, and they do not radiate anywhere. There is no posterior leg pain or leg swelling. Patient was admitted to the ICU for DKA requiring insulin infusion. I have been consulted for critical care management. Patient seen and examined. Vitals, labs,medications, chart and reviewed. no acute overnight events Denies any chest pain, no shortness of breath, no fevers or chills,no nausea or vomiting Past History Past Medical History: diabetes Social history: lives with family, other (college student). denies: smoking, alcohol abuse Medications and Allergies Allergies Allergy/AdvReac Type Severity Reaction Status Date / Time No Known Allergies Allergy Verified 09/03/18 11:18 Home Medications Medication Instructions Recorded Confirmed Last Taken Type Insulin Glargine,Hum.rec.anlog 50 unit SUB-Q BID 09/03/18 09/03/18 Unknown Histo ry [Janiaglpedro Schilling U-100] Insulin NPH Hum/Reg Insulin Hm 50 units SUB-Q BID 09/03/18 09/03/18 Unknown History [HumuLIN 70-30 Vial] Active Meds: Active Medications Acetaminophen (Tylenol) 650 mg PO Q4H PRN PRN Reason: Pain MILD(1-3)/Fever >100.5/HALL Dextrose (D50w (25gm) Syringe) 0 ml IV PRN PRN PRN Reason: Hypoglycemia Famotidine (Pepcid) 20 mg IV BID [facility] Last Admin: 09/03/18 22:17 Dose: 20 mg Documented by: Potassium Chloride/Dextrose/Sod Cl (D5w/0.45% Nacl/Kcl 20 Meq) 20 meq in 1,000 mls @ 125 mls/hr IV DIRECT [facility] Last Admin: 09/04/18 04:17 Dose: 125 mls/hr Documented by: Insulin Human Regular (Humulin R) 0 units SUB-Q Q2HR [facility]; Protocol Last Admin: 09/04/18 06:12 Dose: 2 units Documented by: Metoclopramide HCl (Reglan) 10 mg IV Q6H PRN PRN Reason: Nausea And Vomiting Morphine Sulfate (Morphine) 2 mg IV Q4H PRN PRN Reason: Pain, Moderate (4-6) Ondansetron HCl (Zofran) 4 mg IV Q8H PRN PRN Reason: Nausea And Vomiting Sodium Chloride (Sodium Chloride Flush Syringe 10 Ml) 10 ml IV BID [facility] Last Admin: 09/03/18 22:18 Dose: 10 ml Documented by: Sodium Chloride (Sodium Chloride Flush Syringe 10 Ml) 10 ml IV PRN PRN PRN Reason: LINE FLUSH Review of Systems Constitutional: no weight loss, no weight gain, no fever, no chills, no sweats, no night sweats Cardiovascular: no chest pain, no palpitations, no edema, no lightheadedness, no shortness of breath Respiratory: no cough, no cough with sputum, no hemoptysis, no shortness of breath, no dyspnea on exertion Gastrointestinal: no abdominal pain, no nausea, no vomiting, no diarrhea, no change in bowel habits Genitourinary Male: no dysuria, no flank pain, no discharge, no urinary frequency, no urinary hesitancy, no nocturia Musculoskeletal: no neck stiffness, no neck pain, no arm numbness/tingling, no shooting leg pain, no leg numbness/tingling, no redness of joints Neurological: no head injury, no transient paralysis, no weakness, no parathesias, no numbness, no seizures, no syncope, no ataxia, no lack of coordination Psychiatric: no anxiety, no memory loss, no change in sleep habits, no sleep disturbances, no insomnia Physical Examination Vital signs: Vital Signs Temp Pulse Resp BP Pulse Ox 97.5 F L 104 H 18 128/54 98 09/03/18 11:26 09/03/18 11:26 09/03/18 11:26 09/03/18 11:26 09/03/18 11:26 Results - Laboratory Findings CBC and BMP: 09/03/18 11:37 09/04/18 20:39 Abnormal lab findings: Abnormal Labs 09/03/18 09/03/18 09/03/18 11:28 11:37 11:37 WBC 11.1 H RBC 5.90 H Hgb 16.3 H Hct 50.2 H Lymph % (Auto) 13.2 L Seg Neutrophils % 81.0 H Seg Neutrophils # 9.0 H VBG pH Sodium 136 L Potassium Chloride 88.4 L Carbon Dioxide 9 L* D BUN 21 H Creatinine 1.6 H Glucose 478 H POC Glucose 410 H Calcium 10.3 H Total Creatine Kinase 305 H Total Protein 8.6 H Urine WBC (Auto) 09/03/18 09/03/18 09/03/18 11:37 13:00 13:44 WBC RBC Hgb Hct Lymph % (Auto) Seg Neutrophils % Seg Neutrophils # VBG pH 7.173 L* Sodium Potassium 5.4 H Chloride 96.6 L Carbon Dioxide 11 L BUN Creatinine Glucose 399 H POC Glucose 366 H Calcium Total Creatine Kinase Total Protein Urine WBC (Auto) 09/03/18 09/03/18 09/03/18 15:05 15:52 16:22 WBC RBC Hgb Hct Lymph % (Auto) Seg Neutrophils % Seg Neutrophils # VBG pH Sodium Potassium 5.2 H Chloride Carbon Dioxide 13 L BUN Creatinine Glucose 234 H POC Glucose 263 H 226 H Calcium Total Creatine Kinase Total Protein Urine WBC (Auto) 09/03/18 09/03/18 09/03/18 16:24 16:24 17:18 WBC RBC Hgb Hct Lymph % (Auto) Seg Neutrophils % Seg Neutrophils # VBG pH Sodium Potassium Chloride Carbon Dioxide 14 L BUN Creatinine Glucose 212 H POC Glucose 217 H Calcium Total Creatine Kinase Total Protein Urine WBC (Auto) 11.0 H 09/03/18 09/03/18 09/03/18 18:03 19:30 19:51 WBC RBC Hgb Hct Lymph % (Auto) Seg Neutrophils % Seg Neutrophils # VBG pH Sodium Potassium Chloride Carbon Dioxide 16 L BUN Creatinine Glucose 144 H POC Glucose 206 H 168 H Calcium Total Creatine Kinase Total Protein Urine WBC (Auto) 09/03/18 09/03/18 09/03/18 20:11 21:01 21:13 WBC RBC Hgb Hct Lymph % (Auto) Seg Neutrophils % Seg Neutrophils # VBG pH Sodium Potassium Chloride Carbon Dioxide 19 L BUN Creatinine Glucose 119 H POC Glucose 153 H 120 H Calcium Total Creatine Kinase Total Protein Urine WBC (Auto) 09/03/18 09/03/18 09/03/18 21:51 23:05 23:11 WBC RBC Hgb Hct Lymph % (Auto) Seg Neutrophils % Seg Neutrophils # VBG pH Sodium Potassium Chloride Carbon Dioxide 14 L BUN Creatinine Glucose 138 H POC Glucose 129 H 127 H Calcium Total Creatine Kinase Total Protein Urine WBC (Auto) 09/04/18 09/04/18 09/04/18 00:10 00:43 01:57 WBC RBC Hgb Hct Lymph % (Auto) Seg Neutrophils % Seg Neutrophils # VBG pH Sodium Potassium Chloride Carbon Dioxide 18 L BUN Creatinine Glucose 154 H POC Glucose 121 H 204 H Calcium Total Creatine Kinase Total Protein Urine WBC (Auto) 09/04/18 09/04/18 02:53 04:58 WBC RBC Hgb Hct Lymph % (Auto) Seg Neutrophils % Seg Neutrophils # VBG pH Sodium Potassium Chloride Carbon Dioxide 18 L 16 L BUN Creatinine Glucose 219 H 217 H POC Glucose Calcium Total Creatine Kinase Total Protein Urine WBC (Auto) Assessment and Plan Diabetic ketoacidosis Acute renal failure, pre-renal Metabolic acidosis -Resume insulin infusion, the patient still has an anion gap -DKA treatment per protocol -Ambulation, increase activity -Serial BMPs -Diabetic education prior to discharge -Once gap is closed and patient and glucose if <250, can switch to basal bolus/weight based insulin therapy and transfer out of the ICU Discussed in rounds. Updated the patient re care plan. Discussed the need for medical compliance
--- NOTE | 2018-09-04 07:29 | Progress Note ---
Assessment and Plan - Patient Problems (1) Diabetic ketoacidosis Current Visit: Yes Status: Acute Qualifiers: Diabetes mellitus type: type 1 Plan to address problem: On DKA protocol (2) EMILY (acute kidney injury) Current Visit: Yes Status: Acute Plan to address problem: Improved (3) High anion gap metabolic acidosis Current Visit: No Status: Acute Plan to address problem: Improving (4) Hyponatremia Current Visit: Yes Status: Acute Plan to address problem: Improved (5) Hyperkalemia Current Visit: Yes Status: Acute Plan to address problem: Improved (6) DVT prophylaxis Current Visit: Yes Status: Acute Plan to address problem: On Lovenox Subjective Date of service: 09/04/18 Principal diagnosis: DKA Interval history: Admitted for DKA,Metabolic acidosis Hyperkalemia and Hyponatremia. Patient doing better.No vomiting.Able to tolerate diet today. Objective - Constitutional Vitals: Vital Signs - 12hr 09/03/18 09/03/18 09/03/18 19:30 19:45 20:01 Temperature Pulse Rate 78 78 67 Respiratory 18 12 22 Rate Blood Pressure 104/33 99/52 113/58 O2 Sat by Pulse 99 96 100 Oximetry 09/03/18 09/03/18 09/03/18 20:15 21:01 22:00 Temperature Pulse Rate 73 71 71 Respiratory 17 21 Rate Blood Pressure 113/58 113/58 O2 Sat by Pulse 100 100 Oximetry 09/03/18 09/03/18 09/03/18 22:01 22:49 22:50 Temperature 98.1 F Pulse Rate 124 H 127 H Respiratory 13 12 Rate Blood Pressure 113/58 155/95 O2 Sat by Pulse Oximetry 09/03/18 09/03/18 09/03/18 23:01 23:11 23:20 Temperature Pulse Rate 126 H 119 H 119 H Respiratory 22 15 11 L Rate Blood Pressure 139/95 143/104 140/96 O2 Sat by Pulse 100 100 100 Oximetry 09/03/18 09/03/18 09/04/18 23:31 23:50 00:00 Temperature 98 F Pulse Rate 116 H 117 H Respiratory 20 19 Rate Blood Pressure 145/99 151/101 145/101 O2 Sat by Pulse 100 100 Oximetry 09/04/18 09/04/18 09/04/18 00:11 00:21 00:30 Temperature Pulse Rate 116 H 117 H 111 H Respiratory 18 17 24 Rate Blood Pressure 145/101 145/101 143/91 O2 Sat by Pulse 100 99 100 Oximetry 09/04/18 09/04/18 09/04/18 00:41 00:51 01:01 Temperature Pulse Rate 74 72 65 Respiratory 17 19 16 Rate Blood Pressure O2 Sat by Pulse 97 98 98 Oximetry 09/04/18 09/04/18 09/04/18 01:10 01:21 01:31 Temperature Pulse Rate 62 64 62 Respiratory 16 15 15 Rate Blood Pressure 122/57 122/57 126/48 O2 Sat by Pulse 98 98 98 Oximetry 09/04/18 09/04/18 09/04/18 01:41 01:51 02:01 Temperature Pulse Rate 64 74 63 Respiratory 16 18 14 Rate Blood Pressure 126/48 126/48 120/51 O2 Sat by Pulse 98 98 98 Oximetry 09/04/18 09/04/18 09/04/18 02:11 02:21 02:30 Temperature Pulse Rate 59 L 67 57 L Respiratory 18 21 13 Rate Blood Pressure 120/51 120/51 120/51 O2 Sat by Pulse 98 99 99 Oximetry 09/04/18 09/04/18 09/04/18 02:41 02:51 03:00 Temperature Pulse Rate 54 L 58 L 53 L Respiratory 16 15 15 Rate Blood Pressure 97/27 97/27 97/27 O2 Sat by Pulse 98 99 99 Oximetry 09/04/18 09/04/18 09/04/18 03:11 03:21 03:31 Temperature Pulse Rate 55 L 57 L 59 L Respiratory 14 15 15 Rate Blood Pressure 100/36 100/36 97/36 O2 Sat by Pulse 100 100 100 Oximetry 09/04/18 09/04/18 09/04/18 03:41 03:51 04:00 Temperature 98 F Pulse Rate 62 60 60 Respiratory 22 17 19 Rate Blood Pressure 97/36 97/36 97/36 O2 Sat by Pulse 100 98 100 Oximetry 09/04/18 09/04/18 09/04/18 04:11 04:21 04:31 Temperature Pulse Rate 57 L 53 L 57 L Respiratory 16 15 16 Rate Blood Pressure 116/48 116/48 116/54 O2 Sat by Pulse 100 98 100 Oximetry 09/04/18 09/04/18 09/04/18 04:40 04:51 05:01 Temperature Pulse Rate 57 L 56 L 59 L Respiratory 17 14 18 Rate Blood Pressure 116/54 116/54 118/50 O2 Sat by Pulse 99 99 100 Oximetry 09/04/18 09/04/18 09/04/18 05:11 05:20 05:31 Temperature Pulse Rate 53 L 53 L 58 L Respiratory 16 15 12 Rate Blood Pressure 118/50 118/50 113/48 O2 Sat by Pulse 100 100 100 Oximetry 09/04/18 09/04/18 09/04/18 05:40 05:51 06:00 Temperature Pulse Rate 57 L 60 56 L Respiratory 16 16 15 Rate Blood Pressure 113/48 113/48 113/48 O2 Sat by Pulse 100 99 100 Oximetry 09/04/18 09/04/18 09/04/18 06:11 06:21 06:31 Temperature Pulse Rate 75 56 L 54 L Respiratory 14 16 13 Rate Blood Pressure 113/48 113/48 115/55 O2 Sat by Pulse 98 99 98 Oximetry General appearance: Present: no acute distress, well-nourished - EENT Eyes: PERRL, EOM intact ENT: hearing intact, clear oral mucosa Ears: bilateral: normal - Neck Neck: supple, normal ROM - Respiratory Respiratory effort: normal Respiratory: bilateral: CTA - Breasts Breasts: normal - Cardiovascular Heart rate: 78 Rhythm: regular Heart Sounds: Present: S1 & S2. Absent: gallop, rub Extremities: no ischemia, pulses intact, No edema, normal color, Full ROM - Gastrointestinal General gastrointestinal: Present: soft, non-tender, non-distended, normal bowel sounds Rectal Exam: deferred - Genitourinary Male genitourinary: normal - Integumentary Integumentary: clear, warm, dry - Musculoskeletal Musculoskeletal: 1, strength equal bilaterally - Neurologic Neurologic: moves all extremities - Psychiatric Psychiatric: memory intact, appropriate mood/affect, intact judgment & insight - Allied health notes Allied health notes reviewed: nursing, case management - Labs CBC & Chem 7: 09/03/18 11:37 09/04/18 20:39 Labs: Abnormal lab results 09/03/18 09/03/18 09/03/18 Range/Units 11:28 11:37 11:37 WBC 11.1 H (4.5-11.0) K/mm3 RBC 5.90 H (3.65-5.03) M/mm3 Hgb 16.3 H (11.8-15.2) gm/dl Hct 50.2 H (35.5-45.6) % Lymph % (Auto) 13.2 L (13.4-35.0) % Seg Neutrophils % 81.0 H (40.0-70.0) % Seg Neutrophils # 9.0 H (1.8-7.7) K/mm3 VBG pH (7.320-7.420) Sodium 136 L (137-145) mmol/L Potassium (3.6-5.0) mmol/L Chloride 88.4 L (98-107) mmol/L Carbon Dioxide 9 L* D (22-30) mmol/L BUN 21 H (9-20) mg/dL Creatinine 1.6 H (0.8-1.5) mg/dL Glucose 478 H (75-100) mg/dL POC Glucose 410 H (70-105) Calcium 10.3 H (8.4-10.2) mg/dL Total Creatine Kinase 305 H (55-170) units/L Total Protein 8.6 H (6.3-8.2) g/dL Urine WBC (Auto) (0.0-6.0) /HPF 09/03/18 09/03/18 09/03/18 Range/Units 11:37 13:00 13:44 WBC (4.5-11.0) K/mm3 RBC (3.65-5.03) M/mm3 Hgb (11.8-15.2) gm/dl Hct (35.5-45.6) % Lymph % (Auto) (13.4-35.0) % Seg Neutrophils % (40.0-70.0) % Seg Neutrophils # (1.8-7.7) K/mm3 VBG pH 7.173 L* (7.320-7.420) Sodium (137-145) mmol/L Potassium 5.4 H (3.6-5.0) mmol/L Chloride 96.6 L (98-107) mmol/L Carbon Dioxide 11 L (22-30) mmol/L BUN (9-20) mg/dL Creatinine (0.8-1.5) mg/dL Glucose 399 H (75-100) mg/dL POC Glucose 366 H (70-105) Calcium (8.4-10.2) mg/dL Total Creatine Kinase (55-170) units/L Total Protein (6.3-8.2) g/dL Urine WBC (Auto) (0.0-6.0) /HPF 09/03/18 09/03/18 09/03/18 Range/Units 15:05 15:52 16:22 WBC (4.5-11.0) K/mm3 RBC (3.65-5.03) M/mm3 Hgb (11.8-15.2) gm/dl Hct (35.5-45.6) % Lymph % (Auto) (13.4-35.0) % Seg Neutrophils % (40.0-70.0) % Seg Neutrophils # (1.8-7.7) K/mm3 VBG pH (7.320-7.420) Sodium (137-145) mmol/L Potassium 5.2 H (3.6-5.0) mmol/L Chloride (98-107) mmol/L Carbon Dioxide 13 L (22-30) mmol/L BUN (9-20) mg/dL Creatinine (0.8-1.5) mg/dL Glucose 234 H (75-100) mg/dL POC Glucose 263 H 226 H (70-105) Calcium (8.4-10.2) mg/dL Total Creatine Kinase (55-170) units/L Total Protein (6.3-8.2) g/dL Urine WBC (Auto) (0.0-6.0) /HPF 09/03/18 09/03/18 09/03/18 Range/Units 16:24 16:24 17:18 WBC (4.5-11.0) K/mm3 RBC (3.65-5.03) M/mm3 Hgb (11.8-15.2) gm/dl Hct (35.5-45.6) % Lymph % (Auto) (13.4-35.0) % Seg Neutrophils % (40.0-70.0) % Seg Neutrophils # (1.8-7.7) K/mm3 VBG pH (7.320-7.420) Sodium (137-145) mmol/L Potassium (3.6-5.0) mmol/L Chloride (98-107) mmol/L Carbon Dioxide 14 L (22-30) mmol/L BUN (9-20) mg/dL Creatinine (0.8-1.5) mg/dL Glucose 212 H (75-100) mg/dL POC Glucose 217 H (70-105) Calcium (8.4-10.2) mg/dL Total Creatine Kinase (55-170) units/L Total Protein (6.3-8.2) g/dL Urine WBC (Auto) 11.0 H (0.0-6.0) /HPF 09/03/18 09/03/18 09/03/18 Range/Units 18:03 19:30 19:51 WBC (4.5-11.0) K/mm3 RBC (3.65-5.03) M/mm3 Hgb (11.8-15.2) gm/dl Hct (35.5-45.6) % Lymph % (Auto) (13.4-35.0) % Seg Neutrophils % (40.0-70.0) % Seg Neutrophils # (1.8-7.7) K/mm3 VBG pH (7.320-7.420) Sodium (137-145) mmol/L Potassium (3.6-5.0) mmol/L Chloride (98-107) mmol/L Carbon Dioxide 16 L (22-30) mmol/L BUN (9-20) mg/dL Creatinine (0.8-1.5) mg/dL Glucose 144 H (75-100) mg/dL POC Glucose 206 H 168 H (70-105) Calcium (8.4-10.2) mg/dL Total Creatine Kinase (55-170) units/L Total Protein (6.3-8.2) g/dL Urine WBC (Auto) (0.0-6.0) /HPF 09/03/18 09/03/18 09/03/18 Range/Units 20:11 21:01 21:13 WBC (4.5-11.0) K/mm3 RBC (3.65-5.03) M/mm3 Hgb (11.8-15.2) gm/dl Hct (35.5-45.6) % Lymph % (Auto) (13.4-35.0) % Seg Neutrophils % (40.0-70.0) % Seg Neutrophils # (1.8-7.7) K/mm3 VBG pH (7.320-7.420) Sodium (137-145) mmol/L Potassium (3.6-5.0) mmol/L Chloride (98-107) mmol/L Carbon Dioxide 19 L (22-30) mmol/L BUN (9-20) mg/dL Creatinine (0.8-1.5) mg/dL Glucose 119 H (75-100) mg/dL POC Glucose 153 H 120 H (70-105) Calcium (8.4-10.2) mg/dL Total Creatine Kinase (55-170) units/L Total Protein (6.3-8.2) g/dL Urine WBC (Auto) (0.0-6.0) /HPF 09/03/18 09/03/18 09/03/18 Range/Units 21:51 23:05 23:11 WBC (4.5-11.0) K/mm3 RBC (3.65-5.03) M/mm3 Hgb (11.8-15.2) gm/dl Hct (35.5-45.6) % Lymph % (Auto) (13.4-35.0) % Seg Neutrophils % (40.0-70.0) % Seg Neutrophils # (1.8-7.7) K/mm3 VBG pH (7.320-7.420) Sodium (137-145) mmol/L Potassium (3.6-5.0) mmol/L Chloride (98-107) mmol/L Carbon Dioxide 14 L (22-30) mmol/L BUN (9-20) mg/dL Creatinine (0.8-1.5) mg/dL Glucose 138 H (75-100) mg/dL POC Glucose 129 H 127 H (70-105) Calcium (8.4-10.2) mg/dL Total Creatine Kinase (55-170) units/L Total Protein (6.3-8.2) g/dL Urine WBC (Auto) (0.0-6.0) /HPF 09/04/18 09/04/18 09/04/18 Range/Units 00:10 00:43 01:57 WBC (4.5-11.0) K/mm3 RBC (3.65-5.03) M/mm3 Hgb (11.8-15.2) gm/dl Hct (35.5-45.6) % Lymph % (Auto) (13.4-35.0) % Seg Neutrophils % (40.0-70.0) % Seg Neutrophils # (1.8-7.7) K/mm3 VBG pH (7.320-7.420) Sodium (137-145) mmol/L Potassium (3.6-5.0) mmol/L Chloride (98-107) mmol/L Carbon Dioxide 18 L (22-30) mmol/L BUN (9-20) mg/dL Creatinine (0.8-1.5) mg/dL Glucose 154 H (75-100) mg/dL POC Glucose 121 H 204 H (70-105) Calcium (8.4-10.2) mg/dL Total Creatine Kinase (55-170) units/L Total Protein (6.3-8.2) g/dL Urine WBC (Auto) (0.0-6.0) /HPF 09/04/18 09/04/18 Range/Units 02:53 04:58 WBC (4.5-11.0) K/mm3 RBC (3.65-5.03) M/mm3 Hgb (11.8-15.2) gm/dl Hct (35.5-45.6) % Lymph % (Auto) (13.4-35.0) % Seg Neutrophils % (40.0-70.0) % Seg Neutrophils # (1.8-7.7) K/mm3 VBG pH (7.320-7.420) Sodium (137-145) mmol/L Potassium (3.6-5.0) mmol/L Chloride (98-107) mmol/L Carbon Dioxide 18 L 16 L (22-30) mmol/L BUN (9-20) mg/dL Creatinine (0.8-1.5) mg/dL Glucose 219 H 217 H (75-100) mg/dL POC Glucose (70-105) Calcium (8.4-10.2) mg/dL Total Creatine Kinase (55-170) units/L Total Protein (6.3-8.2) g/dL Urine WBC (Auto) (0.0-6.0) /HPF BMP 09/04/18 09/04/18 13:14 20:39 Sodium 141 136 L Potassium 4.0 4.4 Chloride 104.3 100.1 Carbon Dioxide 23 D 22 BUN 14 15 Creatinine 1.1 1.2 Glucose 121 H 333 H Calcium 9.4 9.3
[2018-09-04] MEDS ORDERED: HumuLIN R 100 UNITS in NACL 0.9% 99 ML IV SCH (09:00)
--- NOTE | 2018-09-04 10:09 | History and Physical Report ---
CHIEF COMPLAINT: High blood glucose levels. HISTORY OF PRESENT ILLNESS: A 18-year-old male with type 1 diabetes, comes in for high blood glucose levels. The patient states he is not taking his insulin properly. The patient was recently switched to Humulin 70/30 and was not discharged with insulin syringes. The patient is not taking insulin properly for the last one week. The patient took 60 units this morning. The patient had nausea and vomiting for 1 day. Vomited about 6 times this morning. No abdominal pain. No fever or chills. PAST MEDICAL HISTORY: Significant for insulin-dependent diabetes. PAST SURGICAL HISTORY: None. SOCIAL HISTORY: Does not smoke. FAMILY HISTORY: Hypertension. CURRENT MEDICATIONS: Insulin NPH 50 units subq b.i.d. He used to be on Lantus 50 units b.i.d. PHYSICAL EXAMINATION: VITAL SIGNS: Blood pressure is 113/48, temperature is 98, pulse is 60, respirations 16. HEENT: Unremarkable. Pupils are equal and reactive. NECK: Supple, no lymphadenopathy, no thyromegaly. LUNGS: Clear to auscultation and percussion. Good air entry. CARDIOVASCULAR: S1, S2 heard. No gallop, no murmur, no rub. Apical impulse in left fifth intercostal space and midclavicular line. ABDOMEN: Soft and benign. No hepatosplenomegaly. No guarding, no rigidity. Hernial orifices are normal. EXTREMITIES: Good pedal pulses. No pedal edema. CENTRAL NERVOUS SYSTEM: Alert and oriented x 4, nonfocal exam. LABORATORY DATA: Significant for white count of 11,100, H and H of 16.3 and hematocrit of 50.2, pH of venous blood is 7.173. Sodium is 136, potassium is 5.0, chloride is 88.4, bicarbonate is 9, BUN and creatinine 21 and 1.6, glucose is 1478. Urine wbc's 11. Urine ketones are 80. Chest x-ray, no acute findings. ASSESSMENT AND PLAN: 1. Diabetic ketoacidosis. Diabetic ketoacidosis protocol initiated. IV insulin initiated. IV normal saline initiated. 2. Metabolic acidosis, severe. Intravenous fluids and intravenous insulin for now. Bicarbonate infusion if necessary. 3. Acute kidney injury secondary to vasomotor nephropathy. Intravenous fluids for now. 4. Hyponatremia, should improve with correction of blood glucose levels. 5. Hyperkalemia, should improve with IV insulin. 6. Deep venous thrombosis prophylaxis. Lovenox 40 mg subcutaneous daily. 7. Diabetic education. The patient was educated about insulin 70/30 and also Humalog before lunch. Critical care consult requested. A lot of counseling to be done. Critical care time is 35 minutes. JOB# [id number] EDGARD/SUMANTH MONSALVE
[2018-09-04] MEDS: PEPCID IV SCH (10:14)
[2018-09-04 14:17] LABS: BUN/Creatinine Ratio 13; Blood Urea Nitrogen 14 mg/dL (9-20); Calcium 9.4 mg/dL (8.4-10.2); Hemolysis Index 10
[2018-09-04] MEDS: HumaLOG SUB-Q SCH ×3 (15:00→23:06)
[2018-09-04 21:07] LABS: BUN/Creatinine Ratio 13; Blood Urea Nitrogen 15 mg/dL (9-20); Calcium 9.3 mg/dL (8.4-10.2); Hemolysis Index 9
[2018-09-04] MEDS: SODIUM CHLORIDE FLUSH SYRINGE 10 ML IV SCH (23:05)
[2018-09-04] MEDS: PEPCID PO SCH (23:06)
[2018-09-05] MEDS: HumaLOG SUB-Q SCH ×2 (08:25→11:10)
[2018-09-05] MEDS: PEPCID PO SCH (09:39)
--- NOTE | 2018-09-05 09:49 | Progress Note ---
Assessment and Plan - Patient Problems (1) EMILY (acute kidney injury) Current Visit: Yes Status: Acute (2) Diabetic ketoacidosis Current Visit: Yes Status: Acute (3) High anion gap metabolic acidosis Current Visit: No Status: Acute (4) Hyperglycemia Current Visit: No Status: Acute Subjective Date of service: 09/05/18 Objective Vital Signs - 12hr 09/04/18 09/05/18 09/05/18 22:28 05:31 08:31 Temperature 97.8 F 97.8 F Pulse Rate 65 49 L Respiratory 18 18 20 Rate Blood Pressure 122/55 112/58 O2 Sat by Pulse 100 98 Oximetry CBC and BMP: 09/03/18 11:37 09/04/18 20:39 Abnormal lab findings: Abnormal Labs 09/03/18 09/03/18 09/03/18 11:28 11:37 11:37 WBC 11.1 H RBC 5.90 H Hgb 16.3 H Hct 50.2 H Lymph % (Auto) 13.2 L Seg Neutrophils % 81.0 H Seg Neutrophils # 9.0 H VBG pH Sodium 136 L Potassium Chloride 88.4 L Carbon Dioxide 9 L* D BUN 21 H Creatinine 1.6 H Glucose 478 H POC Glucose 410 H Calcium 10.3 H Total Creatine Kinase 305 H Total Protein 8.6 H Urine WBC (Auto) 09/03/18 09/03/18 09/03/18 11:37 13:00 13:44 WBC RBC Hgb Hct Lymph % (Auto) Seg Neutrophils % Seg Neutrophils # VBG pH 7.173 L* Sodium Potassium 5.4 H Chloride 96.6 L Carbon Dioxide 11 L BUN Creatinine Glucose 399 H POC Glucose 366 H Calcium Total Creatine Kinase Total Protein Urine WBC (Auto) 09/03/18 09/03/18 09/03/18 15:05 15:52 16:22 WBC RBC Hgb Hct Lymph % (Auto) Seg Neutrophils % Seg Neutrophils # VBG pH Sodium Potassium 5.2 H Chloride Carbon Dioxide 13 L BUN Creatinine Glucose 234 H POC Glucose 263 H 226 H Calcium Total Creatine Kinase Total Protein Urine WBC (Auto) 09/03/18 09/03/18 09/03/18 16:24 16:24 17:18 WBC RBC Hgb Hct Lymph % (Auto) Seg Neutrophils % Seg Neutrophils # VBG pH Sodium Potassium Chloride Carbon Dioxide 14 L BUN Creatinine Glucose 212 H POC Glucose 217 H Calcium Total Creatine Kinase Total Protein Urine WBC (Auto) 11.0 H 09/03/18 09/03/18 09/03/18 18:03 19:30 19:51 WBC RBC Hgb Hct Lymph % (Auto) Seg Neutrophils % Seg Neutrophils # VBG pH Sodium Potassium Chloride Carbon Dioxide 16 L BUN Creatinine Glucose 144 H POC Glucose 206 H 168 H Calcium Total Creatine Kinase Total Protein Urine WBC (Auto) 09/03/18 09/03/18 09/03/18 20:11 21:01 21:13 WBC RBC Hgb Hct Lymph % (Auto) Seg Neutrophils % Seg Neutrophils # VBG pH Sodium Potassium Chloride Carbon Dioxide 19 L BUN Creatinine Glucose 119 H POC Glucose 153 H 120 H Calcium Total Creatine Kinase Total Protein Urine WBC (Auto) 09/03/18 09/03/18 09/03/18 21:51 23:05 23:11 WBC RBC Hgb Hct Lymph % (Auto) Seg Neutrophils % Seg Neutrophils # VBG pH Sodium Potassium Chloride Carbon Dioxide 14 L BUN Creatinine Glucose 138 H POC Glucose 129 H 127 H Calcium Total Creatine Kinase Total Protein Urine WBC (Auto) 09/04/18 09/04/18 09/04/18 00:10 00:43 01:57 WBC RBC Hgb Hct Lymph % (Auto) Seg Neutrophils % Seg Neutrophils # VBG pH Sodium Potassium Chloride Carbon Dioxide 18 L BUN Creatinine Glucose 154 H POC Glucose 121 H 204 H Calcium Total Creatine Kinase Total Protein Urine WBC (Auto) 09/04/18 09/04/18 09/04/18 02:53 04:12 04:58 WBC RBC Hgb Hct Lymph % (Auto) Seg Neutrophils % Seg Neutrophils # VBG pH Sodium Potassium Chloride Carbon Dioxide 18 L 16 L BUN Creatinine Glucose 219 H 217 H POC Glucose 219 H Calcium Total Creatine Kinase Total Protein Urine WBC (Auto) 09/04/18 09/04/18 09/04/18 05:53 09:25 11:15 WBC RBC Hgb Hct Lymph % (Auto) Seg Neutrophils % Seg Neutrophils # VBG pH Sodium Potassium Chloride Carbon Dioxide BUN Creatinine Glucose POC Glucose 193 H 124 H 128 H Calcium Total Creatine Kinase Total Protein Urine WBC (Auto) 09/04/18 09/04/18 09/04/18 12:27 13:14 13:42 WBC RBC Hgb Hct Lymph % (Auto) Seg Neutrophils % Seg Neutrophils # VBG pH Sodium Potassium Chloride Carbon Dioxide BUN Creatinine Glucose 121 H POC Glucose 132 H 117 H Calcium Total Creatine Kinase Total Protein Urine WBC (Auto) 09/04/18 09/04/18 09/04/18 14:10 15:09 17:25 WBC RBC Hgb Hct Lymph % (Auto) Seg Neutrophils % Seg Neutrophils # VBG pH Sodium Potassium Chloride Carbon Dioxide BUN Creatinine Glucose POC Glucose 122 H 127 H 262 H Calcium Total Creatine Kinase Total Protein Urine WBC (Auto) 09/04/18 09/04/18 20:39 22:36 WBC RBC Hgb Hct Lymph % (Auto) Seg Neutrophils % Seg Neutrophils # VBG pH Sodium 136 L Potassium Chloride Carbon Dioxide BUN Creatinine Glucose 333 H POC Glucose 279 H Calcium Total Creatine Kinase Total Protein Urine WBC (Auto)
[2018-09-05] MEDS: SODIUM CHLORIDE FLUSH SYRINGE 10 ML IV SCH (11:11)
--- NOTE | 2018-09-05 11:14 | Discharge Summary ---
Providers - Providers Date of Admission: 09/03/18 13:15 Date of discharge: 09/05/18 Attending physician: AKASH BURR 09/03/18 12:02 Consult to Case Management [CONS] Urgent Services Needed at Discharge: Nursing Student Notified:: awaiting call back Additional Physician Instructions: Patient was discharged 4 days ago with insulin prescriptions without needles. 09/03/18 12:44 Consult to Physician [CONS] Urgent Comment: Consulting Provider: TAVIA MCKINNON Physician Instructions: Reason For Exam: dka 09/03/18 20:46 Consult to Dietitian/Nutrition [CONS] Routine Physician Instructions: Reason For Exam: DKA Reason for Consult: Nutrition Recommendations Reason for Consult: Diet education [facility] Hospital[facility] Condition: Serious Hospital course: (1) Diabetic ketoacidosis Current Visit: Yes Status: Acute Qualifiers: Diabetes mellitus type: type 1 Plan to address problem: On DKA protocol Did well Near normal range Glucose levels (2) EMILY (acute kidney injury) Current Visit: Yes Status: Acute Plan to address problem: Improved (3) High anion gap metabolic acidosis Current Visit: No Status: Acute Plan to address problem: Improved (4) Hyponatremia Current Visit: Yes Status: Acute Plan to address problem: Improved (5) Hyperkalemia Current Visit: Yes Status: Acute Plan to address problem: Improved Patient to be discharged on Novolin 70/30 15 units twice a day and Novalog 6 units before lunch Disposition: DC-01 TO HOME OR SELFCARE - Discharge Diagnoses (1) Diabetic ketoacidosis Status: Acute Qualifiers: Diabetes mellitus type: type 1 (2) EMILY (acute kidney injury) Status: Acute (3) High anion gap metabolic acidosis Status: Acute (4) Hyponatremia Status: Acute (5) Hyperkalemia Status: Acute (6) DVT prophylaxis Status: Acute Core Measure Documentation - Palliative Care Palliative Care/ Comfort Measures: Not Applicable - Core Measures Any of the following diagnoses?: none Exam - Constitutional Vitals: Temp Pulse Resp BP Pulse Ox 97.8 F 49 L 20 112/58 98 09/05/18 05:31 09/05/18 05:31 09/05/18 08:31 09/05/18 05:31 09/05/18 05:31 General appearance: Present: no acute distress, well-nourished - EENT Eyes: Present: PERRL ENT: hearing intact, clear oral mucosa - Neck Neck: Present: supple, normal ROM - Respiratory Respiratory effort: normal Respiratory: bilateral: CTA - Cardiovascular Heart rate: 80 Rhythm: regular Heart Sounds: Present: S1 & S2. Absent: rub, click - Extremities Extremities: no ischemia, pulses intact, pulses symmetrical, No edema Peripheral Pulses: within normal limits - Abdominal General gastrointestinal: Present: soft, non-tender, non-distended, normal bowel sounds Male genitourinary: Present: normal - Integumentary Integumentary: Present: clear, warm, dry - Musculoskeletal Musculoskeletal: gait normal, strength equal bilaterally - Psychiatric Psychiatric: appropriate mood/affect, intact judgment & insight - Neurologic Neurologic: CNII-XII intact, moves all extremities - Allied Health Allied health notes reviewed: nursing, case management Plan Activity: no restrictions Diet: diabetic Follow up with: ALTA WANG MD [Primary Care Provider] - 3-5 Days
[2018-09-05 13:01] VITALS: BP 119/53
== END 2018-09-05 13:37 | disposition home or self-care (01) | DRG 637 ==
LOC: ED 11:17 → CC1 13:15 → 3A 09-04 21:23
PROVIDERS: ADMIT Internal Medicine; ATTEND Internal Medicine
DX: E10.10 Type 1 diabetes mellitus with ketoacidosis without coma (principal); N17.0 Acute kidney failure with tubular necrosis; E87.5 Hyperkalemia; E87.1 Hypo-osmolality and hyponatremia; Z82.49 Family history of ischemic heart disease and other diseases of the circulatory system
CPT/HCPCS: 36415; 71045; 80048; 80053; 81001; 82550; 82805; 82962; 83735; 84100; 85025; 87086; 93005; 93010; G0378; J1815; J2405; J7030

== ENCOUNTER 2019-03-26 23:15 | Emergency (ER) | payer MEDICAID ==
[2019-03-27 00:49] LABS: Basophils % (Auto) 0.3 % (0.0-1.8); Eosinophils % (Auto) 0.5 % (0.0-4.3); Hematocrit 46.7 % (35.5-45.6); Hemoglobin 14.6 gm/dl (11.8-15.2); Lymphocytes # (Auto) 1.8 K/mm3 (1.2-5.4); Lymphocytes % (Auto) 25.6 % (13.4-35.0); Mean Corpuscular HGB Conc 31 % (32-34); Mean Corpuscular Volume 86 fl (84-94); Monocytes # (Auto) 0.7 K/mm3 (0.0-0.8); Monocytes % (Auto) 9.2 % (0.0-7.3); Platelet Count 263 K/mm3 (140-440); Red Blood Count 5.45 M/mm3 (3.65-5.03); Red Cell Distribution Width 14.3 % (13.2-15.2)
[2019-03-27 01:17] LABS: Alanine Aminotransferase 13 units/L (7-56); Albumin 4.5 g/dL (3.9-5); BUN/Creatinine Ratio 12; Blood Urea Nitrogen 13 mg/dL (9-20); Calcium 9.8 mg/dL (8.4-10.2); Hemolysis Index 7
[2019-03-27] MEDS ORDERED: INSULIN REGULAR, HUMAN 100 UNITS/1 ML IV ONE ×2 (01:55→03:30)
[2019-03-27] MEDS ORDERED: SODIUM CHLORIDE 0.9% 1000 ML 1,000 ML IV ONE (01:55)
--- NOTE | 2019-03-27 01:58 | Emergency Department Report ---
ED General Adult HPI - General Chief complaint: Hyperglycemia Stated complaint: POSS HIGH BS LEG NUMBNESS Time Seen by Provider: 03/27/19 01:54 Source: patient Mode of arrival: Ambulatory Limitations: No Limitations - History of Present Illness Initial comments: Patient is a 19-year-old male that presents emergency room with complaints of fatigue and lower back tightness. Patient states he his mouth is dry and he feels dehydrated. Patient denies chest pain. Patient denies shortness of breath. Patient denies nausea vomiting. Patient states is able to tolerate by mouth intake. Patient states she's been taking his insulin for his type 1 diabetes consistently. Patient states he is not sure if he is been taking the right dose. Patient states his lower back pain has resolved since being here. -: Sudden Consistency: constant Improves with: rest Worsens with: movement Associated Symptoms: malaise - Related Data Home Medications Medication Instructions Recorded Confirmed Last Taken Insulin Glargine,Hum.rec.anlog 50 unit SUB-Q BID 09/03/18 09/03/18 Unknown [Basaglar Kwikpen U-100] Previous Rx's Medication Instructions Recorded Last Taken Type Insulin NPH Hum/Reg Insulin Hm 20 units SUB-Q BID #2 vial 09/05/18 Unknown Rx [HumuLIN 70-30 Vial] Lispro Insulin [HumaLOG] 8 unit SQ AC #1 vial 09/05/18 Unknown Rx Allergies Allergy/AdvReac Type Severity Reaction Status Date / Time No Known Allergies Allergy Verified 09/03/18 11:18 ED Review of Systems ROS: Stated complaint: POSS HIGH BS LEG NUMBNESS Other details as noted in HPI Constitutional: malaise. denies: chills, fever Eyes: denies: eye pain, eye discharge, vision change ENT: denies: ear pain, throat pain Respiratory: denies: cough, shortness of breath, wheezing Cardiovascular: denies: chest pain, palpitations Endocrine: no symptoms reported Gastrointestinal: denies: abdominal pain, nausea, diarrhea Genitourinary: denies: urgency, dysuria Musculoskeletal: back pain. denies: joint swelling, arthralgia Skin: denies: rash, lesions Neurological: denies: headache, weakness, paresthesias Psychiatric: denies: anxiety, depression Hematological/Lymphatic: denies: easy bleeding, easy bruising ED Past Medical Hx - Past Medical History Previous Medical History?: Yes Hx Congestive Heart Failure: No Hx Diabetes: Yes Hx Asthma: No Hx COPD: No Hx HIV: No - Surgical History Past Surgical History?: No - Family History Family history: no significant - Social History Smoking Status: Never Smoker Substance Use Type: Alcohol - Medications Home Medications: Home Medications Medication Instructions Recorded Confirmed Last Taken Type Insulin Glargine,Hum.rec.anlog 50 unit SUB-Q BID 09/03/18 09/03/18 Unknown History [Basaglar Kwikpen U-100] Insulin NPH Hum/Reg Insulin Hm 20 units SUB-Q BID #2 vial 09/05/18 Unknown Rx [HumuLIN 70-30 Vial] Lispro Insulin [HumaLOG] 8 unit SQ AC #1 vial 09/05/18 Unknown Rx ED Physical Exam - General Limitations: No Limitations General appearance: alert, in no apparent distress - Head Head exam: Present: atraumatic, normocephalic - Eye Eye exam: Present: normal appearance, PERRL Pupils: Present: normal accommodation - ENT ENT exam: Present: mucous membranes moist - Neck Neck exam: Present: normal inspection - Respiratory Respiratory exam: Present: normal lung sounds bilaterally. Absent: respiratory distress - Cardiovascular Cardiovascular Exam: Present: regular rate, normal rhythm. Absent: systolic murmur, diastolic murmur, rubs, gallop - GI/Abdominal GI/Abdominal exam: Present: soft, normal bowel sounds - Rectal Rectal exam: Present: deferred - Extremities Exam Extremities exam: Present: normal inspection - Back Exam Back exam: Present: normal inspection, full ROM. Absent: tenderness - Neurological Exam Neurological exam: Present: alert, oriented X3, CN II-XII intact, normal gait, reflexes normal. Absent: motor sensory deficit - Psychiatric Psychiatric exam: Present: normal affect, normal mood - Skin Skin exam: Present: warm, dry, intact, normal color. Absent: rash ED Course - Reevaluation(s) Reevaluation #1: Patient sugar improved. Patient states he is feeling better. Patient states that all the symptoms have resolved. Patient tolerated by mouth intake. Patient ambulatory in the ER without difficulty. 03/27/19 03:47 Reevaluation #2: Patient sugar has improved. Patient's chemistry rechecked and is improved. I discussed all results with patient. I discussed plan of care outpatient. Patient agrees with plan of care and discharge. Patient will be discharged home. Patient advised to continue his insulin and follow-up with his diabetic doctor. Patient given discharge instructions. Patient voiced understanding of discharge instructions. 03/27/19 05:38 ED Medical Decision Making - Lab Data Result diagrams: 03/27/19 00:16 03/27/19 04:43 - Medical Decision Making Patient is a 19-year-old male up since emergency room with complaints of hyperglycemia. Patient initially had complaints of numbness in his feet and lower back pain however while waiting in the waiting room his symptoms resolved. Patient's only complaint upon my evaluation was dry mouth and dehydration. Patient given fluids and insulin. Patient responded well to therapy. Patient's sugar improved. Patient's chemistry within normal limits except for hyponatremia. Patient given fluids and his chemistry improved. Patient stable for discharge. Patient to be discharged home. Patient given discharge instructions. - Differential Diagnosis dehydration, hyperglycemia, HHS, DKA Critical care attestation.: If time is entered above; I have spent that time in minutes in the direct care of this critically ill patient, excluding procedure time. ED Disposition Clinical Impression: Hyperglycemia, Dehydration, Hyponatremia Diabetes Qualifiers: Diabetes mellitus type: type 1 Diabetes mellitus complication status: without complication Qualified Code(s): E10.9 - Type 1 diabetes mellitus without compl ications Disposition: -01 TO HOME OR SELFCARE Is pt being admited?: No Does the pt Need Aspirin: No Condition: Stable Instructions: Diabetes Mellitus Type 1 in Adults (ED), Diabetic Hyperglycemia (ED) Additional Instructions: Patient to follow up with primary care in 2-3 days. Patient to return to ER if condition worsens or changes. Patient to continue all medications. Patient to eat a diabetic diet. Patient to monitor blood sugar and keep a log. Patient did take his blood sugar logs to his outpatient follow-ups. 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 Patient to rest. Patient increase water. Referrals: PRIMARY CARE, [Primary Care Provider] - 2-3 Days Time of Disposition: 05:41
[2019-03-27 05:29] LABS: BUN/Creatinine Ratio 12; Blood Urea Nitrogen 11 mg/dL (9-20); Calcium 9.6 mg/dL (8.4-10.2); Hemolysis Index 4
[2019-03-27 06:12] VITALS: BP 122/80
== END 2019-03-27 06:16 | disposition home or self-care (01) ==
LOC: ED 23:15
DX: E10.65 Type 1 diabetes mellitus with hyperglycemia (principal); E86.0 Dehydration; E87.1 Hypo-osmolality and hyponatremia
CPT/HCPCS: 36415; 80048; 80053; 82805; 82962; 85025; 93005; 93010; 96361; 96374; 96376; 99283; J7030; J1815

== ENCOUNTER 2019-04-13 20:02 | Emergency (ER) | payer MEDICAID ==
[2019-04-13] MEDS ORDERED: SODIUM CHLORIDE 0.9% 1000 ML 1,000 ML IV ONE ×2 (20:11→22:13)
[2019-04-13] MEDS ORDERED: ONDANSETRON 4 MG/2 ML INJ IV ONE (20:11)
[2019-04-13] MEDS ORDERED: MORPHINE 4 MG/1 ML INJ IV ONE (20:11)
[2019-04-13] MEDS ORDERED: FAMOTIDINE 20 MG/2 ML INJ IV ONE (20:12)
--- NOTE | 2019-04-13 20:14 | Event Note ---
ED Screening Note ED Screening Note: Mr. Vila is a 19 yo male with hx of juvenile diabetes who presents with shortness of breath, abdominal pain, back pain, chills for one day. Hx of DKa. +nausea/vomiting 6-7 times. PCP on [facility] This initial assessment/diagnostic orders/clinical plan/treatment(s) is/are subject to change based on patients health status, clinical progression and re- assessment by fellow clinical providers in the ED. Further treatment and workup at subsequent clinical providers discretion. Patient/guardian urged not to elope from the ED as their condition may be serious if not clinically assessed and managed. Initial orders include: labs, CXR, IVF, IV medication
--- NOTE | 2019-04-13 20:48 | XRay Report ---
CHEST 2 VIEWS INDICATION / CLINICAL INFORMATION: shortness of breathing. COMPARISON: None available. FINDINGS: SUPPORT DEVICES: None. HEART / MEDIASTINUM: No significant abnormality. LUNGS / PLEURA: No significant pulmonary or pleural abnormality. No pneumothorax. ADDITIONAL FINDINGS: No significant additional findings. IMPRESSION: 1. No acute findings. Signer Name: Sp Batista MD Signed: 04/13/2019 8:44 PM Workstation Name: [email or web address]
[2019-04-13 21:18] LABS: Hematocrit 51.1 % (35.5-45.6); Hemoglobin 17.1 gm/dl (11.8-15.2); Mean Corpuscular HGB Conc 34 % (32-34); Mean Corpuscular Volume 82 fl (84-94); Red Blood Count 6.22 M/mm3 (3.65-5.03)
[2019-04-13 21:44] LABS: Alanine Aminotransferase 17 units/L (7-56); BUN/Creatinine Ratio 16; Bilirubin,Direct 0.3 mg/dL (0-0.2); Blood Urea Nitrogen 19 mg/dL (9-20); Calcium 10.1 mg/dL (8.4-10.2); Hemolysis Index 6
[2019-04-13 22:02] LABS: Band Neutrophils # (Manual) 0.1 K/mm3; Basophils % (Manual) 0 % (0.0-1.8); Ovalocytes 1+; Total Cells Counted 100
[2019-04-13 22:03] LABS: Anisocytosis Few; Large Platelets 1+; Platelet Estimate Consistent w Auto; Tear Drop Cells Rare
[2019-04-13 22:05] LABS: Mean Platelet Volume 10 fl (6-12); Platelet Count 250 K/mm3 (140-440)
--- NOTE | 2019-04-13 23:05 | Emergency Department Report ---
ED General Adult HPI - General Chief complaint: Dyspnea/Respdistress Stated complaint: VOMITING, BACK PAIN, AND SHORT OF BREATH Time Seen by Provider: 04/13/19 20:50 Source: patient Mode of arrival: Ambulatory Limitations: No Limitations - History of Present Illness Initial comments: Patient is a 19-year-old male who has type 1 diabetes who is presenting with nausea vomiting and mild diarrhea for the last day. Patient states he has been compliant with medications. Patient is moving at an apartment and states that he has been eating some fast food does not remember eating anything spoiled. Patient has some mild crampiness in the epigastrium. Patient denies fevers chills, cold congestion at this time. Severity scale (0 -10): 7 - Related Data Home Medications Medication Instructions Recorded Confirmed Last Taken Insulin Glargine,Hum.rec.anlog 50 unit SUB-Q BID 09/03/18 09/03/18 Unknown [Basaglar Kwikpen U-100] Previous Rx's Medication Instructions Recorded Last Taken Type Insulin NPH Hum/Reg Insulin Hm 20 units SUB-Q BID #2 vial 09/05/18 Unknown Rx [HumuLIN 70-30 Vial] Lispro Insulin [HumaLOG] 8 unit SQ AC #1 vial 09/05/18 Unknown Rx Famotidine [Pepcid] 20 mg PO BID #20 tablet 04/13/19 Unknown Rx Ondansetron [Zofran Odt] 4 mg PO Q8HR #10 tab.rapdis 04/13/19 Unknown Rx Allergies Allergy/AdvReac Type Severity Reaction Status Date / Time No Known Allergies Allergy Verified 09/03/18 11:18 ED Review of Systems ROS: Stated complaint: VOMITING, BACK PAIN, AND SHORT OF BREATH Other details as noted in HPI Comment: All other systems reviewed and negative ED Past Medical Hx - Past Medical History Previous Medical History?: Yes Hx Congestive Heart Failure: No Hx Diabetes: Yes Hx Asthma: No Hx COPD: No Hx HIV: No - Surgical History Past Surgical History?: No - Social History Smoking Status: Former Smoker Substance Use Type: None - Medications Home Medications: Home Medications Medication Instructions Recorded Confirmed Last Taken Type Insulin Glargine,Hum.rec.anlog 50 unit SUB-Q BID 09/03/18 09/03/18 Unknown History [Basaglar Kwikpen U-100] Insulin NPH Hum/Reg Insulin Hm 20 units SUB-Q BID #2 vial 09/05/18 Unknown Rx [HumuLIN 70-30 Vial] Lispro Insulin [HumaLOG] 8 unit SQ AC #1 vial 09/05/18 Unknown Rx Famotidine [Pepcid] 20 mg PO BID #20 tablet 04/13/19 Unknown Rx Ondansetron [Zofran Odt] 4 mg PO Q8HR #10 tab.rapdis 04/13/19 Unknown Rx ED Physical Exam - General Limitations: No Limitations General appearance: alert, in no apparent distress - Head Head exam: Present: atraumatic, normocephalic - Eye Eye exam: Present: normal appearance - ENT ENT exam: Present: mucous membranes moist - Neck Neck exam: Present: normal inspection - Respiratory Respiratory exam: Present: normal lung sounds bilaterally. Absent: respiratory distress, wheezes, rales, rhonchi - Cardiovascular Cardiovascular Exam: Present: regular rate, normal rhythm, normal heart sounds. Absent: systolic murmur, diastolic murmur, rubs, gallop - GI/Abdominal GI/Abdominal exam: Present: soft, normal bowel sounds. Absent: distended, tenderness, guarding - Rectal Rectal exam: Present: deferred - Extremities Exam Extremities exam: Present: normal inspection - Back Exam Back exam: Present: normal inspection - Neurological Exam Neurological exam: Present: alert, oriented X3 - Psychiatric Psychiatric exam: Present: normal affect, normal mood - Skin Skin exam: Present: warm, dry, intact, normal color. Absent: rash ED Course Vital Signs 04/13/19 20:06 Temperature 99.0 F Pulse Rate 117 H Respiratory 20 Rate Blood Pressure 111/59 O2 Sat by Pulse 99 Oximetry ED Medical Decision Making - Lab Data Result diagrams: 04/13/19 20:44 04/13/19 20:44 Lab Results 04/13/19 04/13/19 04/13/19 Range/Units 20:44 20:44 20:44 WBC 7.3 (4.5-11.0) K/mm3 RBC 6.22 H (3.65-5.03) M/mm3 Hgb 17.1 H (11.8-15.2) gm/dl Hct 51.1 H (35.5-45.6) % MCV 82 L (84-94) fl MCH 28 (28-32) pg MCHC 34 (32-34) % RDW 15.0 (13.2-15.2) % Plt Count 250 (140-440) K/mm3 Add Manual Diff Complete Total Counted 100 Seg Neutrophils % Scale Operator Seg Neuts % (Manual) 87.0 H (40.0-70.0) % Band Neutrophils % 1.0 % Lymphocytes % (Manual) 8.0 L (13.4-35.0) % Reactive Lymphs % (Man) 0 % Monocytes % (Manual) 2.0 (0.0-7.3) % Eosinophils % (Manual) 1.0 (0.0-4.3) % Basophils % (Manual) 0 (0.0-1.8) % Metamyelocytes % 1.0 % Myelocytes % 0 % Promyelocytes % 0 % Blast Cells % 0 % Nucleated RBC % Not Reportable Seg Neutrophils # Man 6.4 (1.8-7.7) K/mm3 Band Neutrophils # 0.1 K/mm3 Lymphocytes # (Manual) 0.6 L (1.2-5.4) K/mm3 Abs React Lymphs (Man) 0.0 K/mm3 Monocytes # (Manual) 0.1 (0.0-0.8) K/mm3 Eosinophils # (Manual) 0.1 (0.0-0.4) K/mm3 Basophils # (Manual) 0.0 (0.0-0.1) K/mm3 Metamyelocytes # 0.1 K/mm3 Myelocytes # 0.0 K/mm3 Promyelocytes # 0.0 K/mm3 Blast Cells # 0.0 K/mm3 WBC Morphology Not Reportable Hypersegmented Neuts Not Reportable Hyposegmented Neuts Not Reportable Hypogranular Neuts Not Reportable Smudge Cells Not Reportable Toxic Granulation Not Reportable Toxic Vacuolation Not Reportable Dohle Bodies Not Reportable Pelger-Huet Anomaly Not Reportable Delaney Rods Not Reportable Platelet Estimate Consistent w auto Clumped Platelets Not Reportable Plt Clumps, EDTA Not Reportable Large Platelets 1+ Giant Platelets Not Reportable Platelet Satelliting Not Reportable Plt Morphology Comment Not Reportable RBC Morphology Not Reportable Dimorphic RBCs Not Reportable Polychromasia Not Reportable Hypochromasia Not Reportable Poikilocytosis Not Reportable Anisocytosis Few Microcytosis Not Reportable Macrocytosis Not Reportable Spherocytes Not Reportable Pappenheimer Bodies Not Reportable Sickle Cells Not Reportable Target Cells Not Reportable Tear Drop Cells Rare Ovalocytes 1+ Helmet Cells Not Reportable Saldaña-Holt Bodies Not Reportable Camden Rings Not Reportable Elyse Cells Not Reportable Bite Cells Not Reportable Crenated Cell Not Reportable Elliptocytes Few Acanthocytes (Spur) Not Reportable Rouleaux Not Reportable Hemoglobin C Crystals Not Reportable Schistocytes Not Reportable Malaria parasites Not Reportable Denny Bodies Not Reportable Hem Pathologist Commnt No VBG pH 7.350 (7.320-7.420) Sodium 137 (137-145) mmol/L Potassium 3.8 (3.6-5.0) mmol/L Chloride 93.2 L (98-107) mmol/L Carbon Dioxide 23 (22-30) mmol/L Anion Gap 25 mmol/L BUN 19 (9-20) mg/dL Creatinine 1.2 (0.8-1.5) mg/dL Estimated GFR > 60 ml/min BUN/Creatinine Ratio 16 % Glucose 312 H (75-100) mg/dL Calcium 10.1 (8.4-10.2) mg/dL Total Bilirubin 1.50 H (0.1-1.2) mg/dL Direct Bilirubin 0.3 H (0-0.2) mg/dL Indirect Bilirubin 1.2 mg/dL AST 18 (5-40) units/L ALT 17 (7-56) units/L Alkaline Phosphatase 76 (35-129) units/L Total Protein 8.5 H (6.3-8.2) g/dL Albumin 5.0 (3.9-5) g/dL Albumin/Globulin Ratio 1.4 % - Medical Decision Making Patient does have elevated blood glucose however he does not appear to be in DKA. Patient was hydrated and given antiemetics and started to feel much improved. Patient be discharged home. Critical care attestation.: If time is entered above; I have spent that time in minutes in the direct care of this critically ill patient, excluding procedure time. ED Disposition Clinical Impression: Acute gastroenteritis, Hyperglycemia Disposition: DC- TO HOME OR SELFCARE Is pt being admited?: No Does the pt Need Aspirin: No Condition: Stable Instructions: Gastroenteritis (ED) Referrals: PRIMARY CARE, [Primary Care Provider] - 3-5 Days Time of Disposition: 23:03
[2019-04-14 02:08] VITALS: BP 124/85
== END 2019-04-14 01:10 | disposition home or self-care (01) ==
LOC: ED 20:02
DX: K52.9 Noninfective gastroenteritis and colitis, unspecified (principal); E11.65 Type 2 diabetes mellitus with hyperglycemia; Z87.891 Personal history of nicotine dependence; Z79.899 Other long term (current) drug therapy
CPT/HCPCS: 36415; 71046; 80048; 80076; 82805; 85007; 85025; 87040; 96361; 96374; 96375; 99284; J2270; J2405; J7030

== ENCOUNTER 2021-10-14 18:01 | Inpatient (IN) | payer MEDICAID ==
[2021-10-14] MEDS ORDERED: fentaNYL 100 MCG/2 ML INJ IV ONE (18:39)
[2021-10-14] MEDS ORDERED: SODIUM CHLORIDE 0.9% 1000 ML 1,000 ML IV ONE ×2 (18:39)
[2021-10-14] MEDS ORDERED: ONDANSETRON 4 MG/2 ML INJ IV ONE (18:39)
--- NOTE | 2021-10-14 18:46 | Emergency Department Report ---
HPI - General Chief Complaint: Hyperglycemia Time Seen by Provider: 10/14/21 18:33 - HPI HPI: Room 18 The patient is a 21-year-old male present with a chief complaint of nausea vomiting. Patient states his symptoms began 3 days ago with a headache and sore throat. Yesterday patient had a few episodes of nausea vomiting. Today patient states he has had persistent nausea vomiting. Patient complains of a headache and back pain. Patient states he has been in DKA in the past and this feels the same way. Patient denies history of cough or fever. Patient gives his body aches a score of 8/10 ED Past Medical Hx - Past Medical History Hx Diabetes: Yes - Surgical History Past Surgical History?: No - Family History Family history: no significant - Social History Smoking Status: Never Smoker Substance Use Type: Alcohol (Rarely), Marijuana - Medications Home Medications: Home Medications Medication Instructions Recorded Confirmed Last Taken Type Insulin Glargine,Hum.rec.anlog 50 unit SUB-Q BID 09/03/18 09/03/18 Unknown History [Janiaglpedro Schilling U-100] Insulin NPH Hum/Reg Insulin Hm 20 units SUB-Q BID #2 vial 09/05/18 Unknown Rx [HumuLIN 70-30 Vial] Lispro Insulin [HumaLOG] 8 unit SQ AC #1 vial 09/05/18 Unknown Rx Famotidine [Pepcid] 20 mg PO BID #20 tablet 04/13/19 Unknown Rx Ondansetron [Zofran Odt] 4 mg PO Q8HR #10 tab.rapdis 04/13/19 Unknown Rx ED Review of Systems ROS: Stated complaint: NAUSEA/VOMITTING Other details as noted in HPI Constitutional: denies: fever Eyes: denies: eye pain ENT: denies: throat pain Respiratory: denies: cough Cardiovascular: denies: chest pain Endocrine: no symptoms reported Gastrointestinal: nausea, vomiting Genitourinary: denies: dysuria Musculoskeletal: myalgia Neurological: headache Physical Exam - Physical Exam Vital Signs: Vital Signs 10/14/21 18:08 Temperature 98.2 F Pulse Rate 105 H Respiratory 18 Rate Blood Pressure 160/80 [Left] O2 Sat by Pulse 99 Oximetry Physical Exam: GENERAL: The patient is well-developed well-nourished male lying on stretcher actively vomiting. [] HEENT: Normocephalic. Atraumatic. Extraocular motions are intact. NECK: Supple. Trachea midline CHEST/LUNGS: Clear to auscultation. Apparent Kussmaul's respiration HEART/CARDIOVASCULAR: Regular. There is no tachycardia. There is no gallop rub or murmur. ABDOMEN: Abdomen is soft, nontender. Patient has normal bowel sounds. There is no abdominal distention. SKIN: There is no rash. There is no edema. There is no diaphoresis. NEURO: The patient is awake, alert, and oriented. The patient is cooperative. The patient has no focal neurologic deficits. The patient has normal speech. GCS 15 MUSCULOSKELETAL: There is no evidence of acute injury. ED Course Vital Signs 10/14/21 18:08 Temperature 98.2 F Pulse Rate 105 H Respiratory 18 Rate Blood Pressure 160/80 [Left] O2 Sat by Pulse 99 Oximetry ED Medical Decision Making - Lab Data Result diagrams: 10/14/21 18:45 10/14/21 20:42 Laboratory Tests 10/14/21 10/14/21 10/14/21 18:03 18:45 18:45 WBC 15.0 H RBC 5.87 H Hgb 15.3 H Hct 50.8 H MCV 86 MCH 26 L MCHC 30 L RDW 16.2 H Plt Count 342 VBG pH Sodium 131 L Potassium 5.4 H Chloride 93.6 L Carbon Dioxide 5 L* Anion Gap 38 BUN 12 Creatinine 1.4 H Estimated GFR > 60 BUN/Creatinine Ratio 9 Glucose 414 H POC Glucose 452 H Calcium 9.7 Phosphorus Magnesium Lipase 7 L 10/14/21 10/14/21 10/14/21 18:45 20:42 20:42 WBC RBC Hgb Hct MCV MCH MCHC RDW Plt Count VBG pH 7.074 L* Sodium 132 L Potassium 5.8 H Chloride 92.4 L Carbon Dioxide Anion Gap BUN Creatinine Estimated GFR > 60 BUN/Creatinine Ratio 10 Glucose POC Glucose Calcium Phosphorus 3.30 Magnesium 2.00 Lipase 10/14/21 21:20 WBC RBC Hgb Hct MCV MCH MCHC RDW Plt Count VBG pH Sodium Potassium Chloride Carbon Dioxide Anion Gap BUN Creatinine Estimated GFR BUN/Creatinine Ratio Glucose POC Glucose 432 H Calcium Phosphorus Magnesium Lipase - Differential Diagnosis DKA, hyperglycemia, dehydration Critical care attestation.: If time is entered above; I have spent that time in minutes in the direct care of this critically ill patient, excluding procedure time. ED Disposition Clinical Impression: DKA (diabetic ketoacidosis) Disposition: 09 ADMITTED INPATIENT Is pt being admited?: Yes Does the pt Need Aspirin: No Condition: Fair Instructions: Diabetic Ketoacidosis (ED) Time of Disposition: 21:29 (Care transferred to hospitalist (Dr Ames))
[2021-10-14 19:38] LABS: Hematocrit 50.8 % (35.5-45.6); Hemoglobin 15.3 gm/dl (11.8-15.2); Mean Corpuscular HGB Conc 30 % (32-34); Mean Corpuscular Volume 86 fl (84-94); Platelet Count 342 K/mm3 (140-440); Red Blood Count 5.87 M/mm3 (3.65-5.03); Red Cell Distribution Width 16.2 % (13.2-15.2)
[2021-10-14 19:52] LABS: BUN/Creatinine Ratio 9; Blood Urea Nitrogen 12 mg/dL (9-20); Calcium 9.7 mg/dL (8.4-10.2); Hemolysis Index 16
[2021-10-14] MEDS ORDERED: KETOROLAC 30 MG/1 ML INJ IV ONE (20:47)
[2021-10-14] MEDS ORDERED: METOCLOPRAMIDE 10 MG/2 ML INJ IV ONE (20:47)
[2021-10-14 21:20] LABS: BUN/Creatinine Ratio 10; Blood Urea Nitrogen 13 mg/dL (9-20); Calcium 9.5 mg/dL (8.4-10.2); Hemolysis Index 8
[2021-10-14 21:29] LABS: Anisocytosis 1+; Band Neutrophils # (Manual) 0.3 K/mm3; Basophils % (Manual) 0 % (0.0-1.8); Eosinophils % (Manual) 0 % (0.0-4.3); Poikilocytosis 1+; Total Cells Counted 100
[2021-10-14 21:30] LABS: Ovalocytes 3+; Platelet Estimate Consistent w Auto
[2021-10-14] MEDS: INSULIN REGULAR, HUMAN 100 UNITS in SODIUM CHLORIDE 0.9% 99 ML IV SCH (21:31)
[2021-10-14] MEDS ORDERED: MORPHINE 4 MG/1 ML INJ IV PRN (22:01)
[2021-10-14] MEDS ORDERED: DEXTROSE 50% IN WATER (25GM) 50 ML SYRINGE IV PRN (22:01)
[2021-10-14] MEDS ORDERED: MORPHINE 2 MG/1 ML INJ IV PRN (22:01)
--- NOTE | 2021-10-14 22:14 | History and Physical Report ---
History of Present Illness Date of examination: 10/14/21 Date of admission: 10/14/2021 Chief complaint: Nausea and Vomiting History of present illness: 21-year-old -[place]ish male with known history of diabetes mellitus presenting to the emergency room today complaining of nausea and vomiting, sore throat and headache which has been ongoing for the past 3 to 4 days. He has therefore not been able to take his medications regularly secondary to the symptoms. He has also been having generalized body aches and pain. Denies any chest pain or shortness of breath. He denies any fever or chills, denies any sick contacts and no recent travel. Patient denies any contact with anyone with COVID-19. He however indicates that he has not received the COVID vaccination. Work-up in the emergency room today, lab reveals hemoglobin of 15.3, hematocrit of 50.8, WBC of 15. Venous pH was 7.074. Anion gap of 38, CO2 of 5, blood glucose of 414. Potassium 5.4. Sodium 131. Patient has been admitted with DKA. He has been started on insulin drip on IV fluid. Past History Past Medical History: diabetes Past Surgical History: No surgical history Social history: alcohol abuse (Occasionally), other (Marijuana) Family history: no significant family history Medications and Allergies Allergies Allergy/AdvReac Type Severity Reaction Status Date / Time No Known Allergies Allergy Verified 10/14/21 18:07 Home Medications Medication Instructions Recorded Confirmed Last Taken Type Insulin Glargine,Hum.rec.anlog 50 unit SUB-Q BID 09/03/18 09/03/18 Unknown Hist ory [Basaglar Kwikpen U-100] Insulin NPH Hum/Reg Insulin Hm 20 units SUB-Q BID #2 vial 09/05/18 Unknown Rx [HumuLIN 70-30 Vial] Lispro Insulin [HumaLOG] 8 unit SQ AC #1 vial 09/05/18 Unknown Rx Famotidine [Pepcid] 20 mg PO BID #20 tablet 04/13/19 Unknown Rx Ondansetron [Zofran Odt] 4 mg PO Q8HR #10 tab.rapdis 04/13/19 Unknown Rx Active Meds: Active Medications Acetaminophen (Acetaminophen 325 Mg Tab) 650 mg PO Q6H PRN PRN Reason: Pain MILD(1-3)/Fever >100.5/HALL Dextrose (Dextrose 50% In Water (25gm) 50 Ml Syringe) 0 ml IV Q30MIN PRN; Prot ocol PRN Reason: Hypoglycemia Heparin Sodium (Porcine) (Heparin 5,000 Unit/1 Ml Vial) 5,000 unit SUB-Q Q8HR FAN Insulin Human Regular 100 (units/ Sodium Chloride) 100 mls @ 10 mls/hr IV TITR FAN; Protocol Last Admin: 10/14/21 21:31 Dose: 10 units/hr, 10 mls/hr Sodium Chloride (Nacl 0.9% 1000 Ml) 1,000 mls @ 150 mls/hr IV DIRECT FAN Potassium Chloride/Dextrose/Sod Cl (D5w/0.45% Nacl/Kcl 20 Meq) 20 meq in 1,000 mls @ 125 mls/hr IV DIRECT FAN Morphine Sulfate (Morphine 2 Mg/1 Ml Inj) 2 mg IV Q4H PRN PRN Reason: Pain, Moderate (4-6) Morphine Sulfate (Morphine 4 Mg/1 Ml Inj) 4 mg IV Q4H PRN PRN Reason: Pain , Severe (7-10) Sodium Chloride (Sodium Chloride 0.9% 10 Ml Flush Syringe) 10 ml IV BID FAN Sodium Chloride (Sodium Chloride 0.9% 10 Ml Flush Syringe) 10 ml IV PRN PRN PRN Reason: LINE FLUSH Review of Systems Constitutional: no fever, no chills Ears, nose, mouth and throat: sore throat, no nasal congestion Cardiovascular: no chest pain, no palpitations Respiratory: no cough, no shortness of breath Gastrointestinal: nausea, vomiting, no abdominal pain, no diarrhea Genitourinary Male: no dysuria, no hematuria, no flank pain Musculoskeletal: no neck pain, no low back pain Integumentary: no rash, no pruritis Neurological: headaches, no confusion Psychiatric: no anxiety, no depression Endocrine: no polyphagia, no polydipsia, no polyuria, no nocturia Exam - Constitutional Vitals: Temp Pulse Resp BP Pulse Ox 98.2 F 100 H 41 H 173/93 100 10/14/21 18:08 10/14/21 21:31 10/14/21 21:31 10/14/21 21:31 10/14/21 21:31 General appearance: Present: mild distress, well-nourished - EENT Eyes: Present: PERRL, EOM intact. Absent: scleral icterus ENT: hearing intact, clear oral mucosa, dentition normal - Neck Neck: Present: supple, normal ROM - Respiratory Respiratory effort: normal Respiratory: bilateral: CTA - Cardiovascular Rhythm: regular Heart Sounds: Present: S1 & S2. Absent: gallop, systolic murmur, diastolic murmur, rub, click - Extremities Extremities: no ischemia, pulses intact, pulses symmetrical, No edema, normal temperature, normal color, Full ROM Peripheral Pulses: within normal limits - Abdominal General gastrointestinal: Present: soft, non-tender, non-distended, normal bowel sounds. Absent: mass - Integumentary Integumentary: Present: clear, warm, dry, normal turgor. Absent: rash - Musculoskeletal Musculoskeletal: strength equal bilaterally - Psychiatric Psychiatric: appropriate mood/affect, intact judgment & insight, memory intact, cooperative - Neurologic Neurologic: CNII-XII intact, no focal deficits, moves all extremities Results - Labs CBC & Chem 7: 10/14/21 18:45 10/14/21 20:42 Labs: Abnormal lab results 10/14/21 10/14/21 10/14/21 Range/Units 18:03 18:45 18:45 WBC 15.0 H (4.5-11.0) K/mm3 RBC 5.87 H (3.65-5.03) M/mm3 Hgb 15.3 H (11.8-15.2) gm/dl Hct 50.8 H (35.5-45.6) % MCH 26 L (28-32) pg MCHC 30 L (32-34) % RDW 16.2 H (13.2-15.2) % Seg Neuts % (Manual) 83.0 H (40.0-70.0) % Lymphocytes % (Manual) 7.0 L (13.4-35.0) % Seg Neutrophils # Man 12.5 H (1.8-7.7) K/mm3 Lymphocytes # (Manual) 1.1 L (1.2-5.4) K/mm3 Monocytes # (Manual) 1.1 H (0.0-0.8) K/mm3 VBG pH (7.320-7.420) Sodium 131 L (137-145) mmol/L Potassium 5.4 H (3.6-5.0) mmol/L Chloride 93.6 L (98-107) mmol/L Carbon Dioxide 5 L* (22-30) mmol/L Creatinine 1.4 H (0.8-1.3) mg/dL Glucose 414 H (75-100) mg/dL POC Glucose 452 H (70-105) mg/dL Lipase 7 L (13-60) units/L 10/14/21 10/14/21 10/14/21 Range/Units 18:45 20:42 21:20 WBC (4.5-11.0) K/mm3 RBC (3.65-5.03) M/mm3 Hgb (11.8-15.2) gm/dl Hct (35.5-45.6) % MCH (28-32) pg MCHC (32-34) % RDW (13.2-15.2) % Seg Neuts % (Manual) (40.0-70.0) % Lymphocytes % (Manual) (13.4-35.0) % Seg Neutrophils # Man (1.8-7.7) K/mm3 Lymphocytes # (Manual) (1.2-5.4) K/mm3 Monocytes # (Manual) (0.0-0.8) K/mm3 VBG pH 7.074 L* (7.320-7.420) Sodium 132 L (137-145) mmol/L Potassium 5.8 H (3.6-5.0) mmol/L Chloride 92.4 L (98-107) mmol/L Carbon Dioxide 5 L* (22-30) mmol/L Creatinine (0.8-1.3) mg/dL Glucose 415 H (75-100) mg/dL POC Glucose 432 H (70-105) mg/dL Lipase (13-60) units/L Assessment and Plan Assessment: 1.DKA-secondary to noncompliance with medication regimen. 2.Hyperkalemia 3.Headache 4. PUI Plan: 1.Admiited into ICU 2.Started on insulin drip and Iv fluid 3.Monitor blood glucose closely. 4. We will also schedule patient for the COVID-19. DVT Prophylaxis : SQ Heparin Code Status: Full Code
[2021-10-14] MEDS ORDERED: SODIUM CHLORIDE 0.9% 1000 ML 1,000 ML IV SCH (22:15)
[2021-10-14] MEDS ORDERED: SODIUM BICARB 8.4% 50 MEQ/50 ML SYRINGE IV ONE (22:17)
[2021-10-14] MEDS ORDERED: D5W/0.45% NACL/KCL 20 MEQ 20 MEQ/1,000 ML BAG IV SCH (23:00)
[2021-10-15 01:13] LABS: BUN/Creatinine Ratio 10; Blood Urea Nitrogen 14 mg/dL (9-20); Calcium 9.1 mg/dL (8.4-10.2); Hemolysis Index 73
[2021-10-15] MEDS: D5W/0.45% NACL 1,000 ML IV SCH ×2 (03:09→10:06)
[2021-10-15] MEDS: SODIUM BICARBONATE IV SCH ×2 (03:12→11:33)
[2021-10-15] MEDS: SODIUM CHLORIDE 0.9% IV SCH ×2 (03:12→11:33)
[2021-10-15 05:09] LABS: BUN/Creatinine Ratio 11; Blood Urea Nitrogen 14 mg/dL (9-20); Calcium 8.8 mg/dL (8.4-10.2); Hemolysis Index 6
[2021-10-15] MEDS: HEPARIN 5,000 UNIT/1 ML VIAL SUB-Q SCH ×3 (06:53→21:50)
[2021-10-15] MEDS ORDERED: LACTATED RINGERS 2,000 ML IV ONE (08:30)
[2021-10-15] MEDS ORDERED: FAMOTIDINE 20 MG/2 ML INJ IV SCH (10:00)
--- NOTE | 2021-10-15 11:19 | Consultation ---
History of Present Illness Consult date: 10/15/21 Requesting physician: ALISHA MEAD Reason for consult: other (DKA) History of present illness: PULMONARY/CCM CONSULT NOTE (Full dictation # [id number]) Please see dictated notes for full details Past History Past Medical History: diabetes Past Surgical History: No surgical history Social history: alcohol abuse (Occasionally), other (Marijuana) Family history: no significant family history Medications and Allergies Allergies Allergy/AdvReac Type Severity Reaction Status Date / Time No Known Allergies Allergy Verified 10/14/21 18:07 Home Medications Medication Instructions Recorded Confirmed Last Taken Type Insulin Glargine,Hum.rec.anlog 50 unit SUB-Q BID 09/03/18 09/03/18 Unknown His tory [Basaglar Kwikpen U-100] Insulin NPH Hum/Reg Insulin Hm 20 units SUB-Q BID #2 vial 09/05/18 Unknown Rx [HumuLIN 70-30 Vial] Lispro Insulin [HumaLOG] 8 unit SQ AC #1 vial 09/05/18 Unknown Rx Famotidine [Pepcid] 20 mg PO BID #20 tablet 04/13/19 Unknown Rx Ondansetron [Zofran Odt] 4 mg PO Q8HR #10 tab.rapdis 04/13/19 Unknown Rx Active Meds: Active Medications Acetaminophen (Acetaminophen 325 Mg Tab) 650 mg PO Q6H PRN PRN Reason: Pain MILD(1-3)/Fever >100.5/HALL Dextrose (Dextrose 50% In Water (25gm) 50 Ml Syringe) 0 ml IV Q30MIN PRN; Pro tocol PRN Reason: Hypoglycemia Famotidine (Famotidine 20 Mg/2 Ml Inj) 20 mg IV QDAY FAN Stop: 10/15/21 13:00 Last Admin: 10/15/21 09:39 Dose: 20 mg Famotidine (Famotidine 20 Mg Tab) 20 mg PO QDAY FAN Heparin Sodium (Porcine) (Heparin 5,000 Unit/1 Ml Vial) 5,000 unit SUB-Q Q8HR FAN Last Admin: 10/15/21 06:53 Dose: 5,000 unit Insulin Human Regular 100 (units/ Sodium Chloride) 100 mls @ 10 mls/hr IV TITR FAN; Protocol Last Titration: 10/15/21 10:36 Dose: 4 units/hr, 4 mls/hr Sodium Chloride (Nacl 0.9% 1000 Ml) 1,000 mls @ 150 mls/hr IV DIRECT FAN Last Infusion: 10/15/21 03:00 Dose: 0 mls/hr Sodium Bicarbonate 100 meq/ (Sodium Chloride) 1,100 mls @ 150 mls/hr IV DIR ECT FAN Last Admin: 10/15/21 03:12 Dose: 150 mls/hr Dextrose/Sodium Chloride (D5/0.45ns) 1,000 mls @ 150 mls/hr IV DIRECT FAN Last Admin: 10/15/21 10:06 Dose: 150 mls/hr Morphine Sulfate (Morphine 2 Mg/1 Ml Inj) 2 mg IV Q4H PRN PRN Reason: Pain, Moderate (4-6) Sodium Chloride (Sodium Chloride 0.9% 10 Ml Flush Syringe) 10 ml IV BID FAN Last Admin: 10/15/21 09:41 Dose: 10 ml Sodium Chloride (Sodium Chloride 0.9% 10 Ml Flush Syringe) 10 ml IV PRN PRN PRN Reason: LINE FLUSH Physical Examination Vital signs: Vital Signs Temp Pulse Resp BP Pulse Ox 98.2 F 105 H 18 160/80 99 10/14/21 18:08 10/14/21 18:08 10/14/21 18:08 10/14/21 18:08 10/14/21 18:08 Results - Laboratory Findings CBC and BMP: 10/14/21 18:45 10/15/21 04:08 Abnormal lab findings: Abnormal Labs 10/14/21 10/14/21 10/14/21 18:03 18:45 18:45 WBC 15.0 H RBC 5.87 H Hgb 15.3 H Hct 50.8 H MCH 26 L MCHC 30 L RDW 16.2 H Seg Neuts % (Manual) 83.0 H Lymphocytes % (Manual) 7.0 L Seg Neutrophils # Man 12.5 H Lymphocytes # (Manual) 1.1 L Monocytes # (Manual) 1.1 H VBG pH Sodium 131 L Potassium 5.4 H Chloride 93.6 L Carbon Dioxide 5 L* Creatinine 1.4 H Glucose 414 H POC Glucose 452 H Lipase 7 L 10/14/21 10/14/21 10/14/21 18:45 20:42 21:20 WBC RBC Hgb Hct MCH MCHC RDW Seg Neuts % (Manual) Lymphocytes % (Manual) Seg Neutrophils # Man Lymphocytes # (Manual) Monocytes # (Manual) VBG pH 7.074 L* Sodium 132 L Potassium 5.8 H Chloride 92.4 L Carbon Dioxide 5 L* Creatinine Glucose 415 H POC Glucose 432 H Lipase 10/14/21 10/14/21 10/15/21 22:39 23:33 00:14 WBC RBC Hgb Hct MCH MCHC RDW Seg Neuts % (Manual) Lymphocytes % (Manual) Seg Neutrophils # Man Lymphocytes # (Manual) Monocytes # (Manual) VBG pH Sodium 130 L Potassium 5.8 H Chloride 97.6 L Carbon Dioxide 4 L* Creatinine 1.4 H Glucose 302 H POC Glucose 337 H 309 H Lipase 10/15/21 10/15/21 10/15/21 00:34 01:31 02:42 WBC RBC Hgb Hct MCH MCHC RDW Seg Neuts % (Manual) Lymphocytes % (Manual) Seg Neutrophils # Man Lymphocytes # (Manual) Monocytes # (Manual) VBG pH Sodium Potassium Chloride Carbon Dioxide Creatinine Glucose POC Glucose 264 H 258 H 200 H Lipase 10/15/21 10/15/21 10/15/21 03:34 04:08 04:31 WBC RBC Hgb Hct MCH MCHC RDW Seg Neuts % (Manual) Lymphocytes % (Manual) Seg Neutrophils # Man Lymphocytes # (Manual) Monocytes # (Manual) VBG pH Sodium 133 L Potassium 5.1 H Chloride Carbon Dioxide 6 L* Creatinine Glucose 187 H POC Glucose 210 H 218 H Lipase 10/15/21 10/15/21 10/15/21 05:30 06:26 07:34 WBC RBC Hgb Hct MCH MCHC RDW Seg Neuts % (Manual) Lymphocytes % (Manual) Seg Neutrophils # Man Lymphocytes # (Manual) Monocytes # (Manual) VBG pH Sodium Potassium Chloride Carbon Dioxide Creatinine Glucose POC Glucose 182 H 151 H 140 H Lipase 10/15/21 10/15/21 10/15/21 08:30 09:38 10:32 WBC RBC Hgb Hct MCH MCHC RDW Seg Neuts % (Manual) Lymphocytes % (Manual) Seg Neutrophils # Man Lymphocytes # (Manual) Monocytes # (Manual) VBG pH Sodium Potassium Chloride Carbon Dioxide Creatinine Glucose POC Glucose 142 H 138 H 132 H Lipase
--- NOTE | 2021-10-15 11:20 | Progress Note ---
<SAEID GOOD - Last Filed: 10/15/21 18:51> Assessment and Plan Assessment and plan: This is a 21-year-old AA male with known past medical history of type 1 diabetes admitted for DKA Hospital Course to Date: 10/15: Remains with severe metabolic acidosis on Bcarb gtt. Additional IVF bolus administered, continue insulin gtt and IVF resuscitation per DKA protocol. Will transition of subQ insulin once acidosis resolved. Leukocytosis is most likely reactive, due to DKA. Patient remains afebrile, VSS. COVID PCR pending. Will continue to monitor, trend CBC. Assessment and Plan #DKA (Diabetic Ketoacidosis) #Severe Metabolic Acidosis #Type 1 Diabetes Mellitus - Presented with nausea and vomiting, sore throat and headache X4days, with high BG, severe acidosis, UA + ketones - Patient reported recent that he had a cold recently then he ran out of his lo ng-acting insulin and he couldn't go pick his meds from the pharmacy due to his sx - HgbA1C pending - DKA protocol initiated - Patient remains severely acidotic this am, now on Bcarb gtt - Additional IVF bolus administered - Continue insulin gtt and IVF resuscitation per DKA protocol - Monitor and replace electrolytes as needed - Monitor anion gap, serial Labs ordered #Nausea/Vomiting #Headache - proabably secondary to DKA - on DKA protocol - symptoms resolved this am - PRN antiemetic for N/V - PRN Analgesia for pain control #Hyponatremia #Hyperkalemia-improved #Volume Depletion/Dehydration - secondary to above - Continue IVF hydration per DKA protocol - Monitor and replace electrolytes as needed #Leukocytosis #COVID PUI - probably reactive to DKA - R/o COVID infection. Patient reported sore throat and recent cold/flu like sx with generalized body aches and pain - Sx resolved this admit - COVID PCR pending - Continue to monitor for now #GI/DVT Prophylaxis - PPI- Pepcid - SCDs to bilateral lower extremities while in bed #Advance Care Planning - Disease education data, care plan, diagnoses, and prognosis were discussed with patient at the bedside. Patient is a FULL code. Patient aknowledged understanding and agreed with current care plan. The high probability of a clinically significant, sudden or life threatening deterioration of the [multiple] system(s) required my full and direct attention, intervention and personal management. The aggregate critical care time was [60] minutes. This time is in addition to time spent performing reported procedures but includes the following: [x] Data Review and interpretation [x] Patient assessment and monitoring of vital signs [x] Documentation [x] Medication orders and management Disposition Plan: ICU Total Time Spent with Patient (Minutes): 60 History Interval history: Patient seen and examined at the bedside. Fully AAO, on Ra, denied any pain nor any discomfort at this time, n/v resolved. VSS. On insulin gtt and IVF resuscitation per DKA protocol. Bcarb gtt is also running. Hospitalist Physical - Constitutional Vitals: Temp Pulse Resp BP Pulse Ox 99.1 F 83 22 127/69 100 10/15/21 07:00 10/15/21 10:00 10/15/21 10:00 10/15/21 10:00 10/15/21 10:00 General appearance: Present: no acute distress, well-nourished - EENT Eyes: Present: PERRL, EOM intact ENT: hearing intact - Neck Neck: Present: normal ROM - Respiratory Respiratory effort: normal Respiratory: bilateral: CTA - Cardiovascular Rhythm: regular Heart Sounds: Present: S1 & S2 - Extremities Extremities: no ischemia, pulses intact, pulses symmetrical Peripheral Pulses: within normal limits - Abdominal General gastrointestinal: soft, non-distended, normal bowel sounds - Integumentary Integumentary: Present: clear, warm, dry - Psychiatric Psychiatric: appropriate mood/affect, cooperative - Neurologic Neurologic: CNII-XII intact, moves all extremities - Allied Health Allied health notes reviewed: nursing Results - Labs CBC & Chem 7: 10/14/21 18:45 10/15/21 14:05 Labs: Laboratory Last Values WBC 15.0 K/mm3 (4.5-11.0) H 10/14/21 18:45 RBC 5.87 M/mm3 (3.65-5.03) H 10/14/21 18:45 Hgb 15.3 gm/dl (11.8-15.2) H 10/14/21 18:45 Hct 50.8 % (35.5-45.6) H 10/14/21 18:45 MCV 86 fl (84-94) 10/14/21 18:45 MCH 26 pg (28-32) L 10/14/21 18:45 MCHC 30 % (32-34) L 10/14/21 18:45 RDW 16.2 % (13.2-15.2) H 10/14/21 18:45 Plt Count 342 K/mm3 (140-440) 10/14/21 18:45 Add Manual Diff Complete 10/14/21 18:45 Total Counted 100 10/14/21 18:45 Seg Neuts % (Manual) 83.0 % (40.0-70.0) H 10/14/21 18:45 Band Neutrophils % 2.0 % 10/14/21 18:45 Lymphocytes % (Manual) 7.0 % (13.4-35.0) L 10/14/21 18:45 Reactive Lymphs % (Man) 0 % 10/14/21 18:45 Monocytes % (Manual) 7.0 % (0.0-7.3) 10/14/21 18:45 Eosinophils % (Manual) 0 % (0.0-4.3) 10/14/21 18:45 Basophils % (Manual) 0 % (0.0-1.8) 10/14/21 18:45 Metamyelocytes % 1.0 % 10/14/21 18:45 Myelocytes % 0 % 10/14/21 18:45 Promyelocytes % 0 % 10/14/21 18:45 Blast Cells % 0 % 10/14/21 18:45 Nucleated RBC % Not Reportable 10/14/21 18:45 Seg Neutrophils # Man 12.5 K/mm3 (1.8-7.7) H 10/14/21 18:45 Band Neutrophils # 0.3 K/mm3 10/14/21 18:45 Lymphocytes # (Manual) 1.1 K/mm3 (1.2-5.4) L 10/14/21 18:45 Abs React Lymphs (Man) 0.0 K/mm3 10/14/21 18:45 Monocytes # (Manual) 1.1 K/mm3 (0.0-0.8) H 10/14/21 18:45 Eosinophils # (Manual) 0.0 K/mm3 (0.0-0.4) 10/14/21 18:45 Basophils # (Manual) 0.0 K/mm3 (0.0-0.1) 10/14/21 18:45 Metamyelocytes # 0.2 K/mm3 10/14/21 18:45 Myelocytes # 0.0 K/mm3 10/14/21 18:45 Promyelocytes # 0.0 K/mm3 10/14/21 18:45 Blast Cells # 0.0 K/mm3 10/14/21 18:45 WBC Morphology Not Reportable 10/14/21 18:45 Hypersegmented Neuts Not Reportable 10/14/21 18:45 Hyposegmented Neuts Not Reportable 10/14/21 18:45 Hypogranular Neuts Not Reportable 10/14/21 18:45 Smudge Cells Not Reportable 10/14/21 18:45 Toxic Granulation Not Reportable 10/14/21 18:45 Toxic Vacuolation Not Reportable 10/14/21 18:45 Dohle Bodies Not Reportable 10/14/21 18:45 Pelger-Huet Anomaly Not Reportable 10/14/21 18:45 Delaney Rods Not Reportable 10/14/21 18:45 Platelet Estimate Consistent w auto 10/14/21 18:45 Clumped Platelets Not Reportable 10/14/21 18:45 Plt Clumps, EDTA Not Reportable 10/14/21 18:45 Large Platelets Not Reportable 10/14/21 18:45 Giant Platelets Not Reportable 10/14/21 18:45 Platelet Satelliting Not Reportable 10/14/21 18:45 Plt Morphology Comment Not Reportable 10/14/21 18:45 RBC Morphology Not Reportable 10/14/21 18:45 Dimorphic RBCs Not Reportable 10/14/21 18:45 Polychromasia Not Reportable 10/14/21 18:45 Hypochromasia Not Reportable 10/14/21 18:45 Poikilocytosis 1+ 10/14/21 18:45 Anisocytosis 1+ 10/14/21 18:45 Microcytosis Not Reportable 10/14/21 18:45 Macrocytosis Not Reportable 10/14/21 18:45 Spherocytes Not Reportable 10/14/21 18:45 Pappenheimer Bodies Not Reportable 10/14/21 18:45 Sickle Cells Not Reportable 10/14/21 18:45 Target Cells Not Reportable 10/14/21 18:45 Tear Drop Cells Not Reportable 10/14/21 18:45 Ovalocytes 3+ 10/14/21 18:45 Helmet Cells Not Reportable 10/14/21 18:45 Saldaña-Minier Bodies Not Reportable 10/14/21 18:45 Frederick Rings Not Reportable 10/14/21 18:45 [place] Cells Not Reportable 10/14/21 18:45 Bite Cells Not Reportable 10/14/21 18:45 Crenated Cell Not Reportable 10/14/21 18:45 Elliptocytes Few 10/14/21 18:45 Acanthocytes (Spur) Not Reportable 10/14/21 18:45 Rouleaux Not Reportable 10/14/21 18:45 Hemoglobin C Crystals Not Reportable 10/14/21 18:45 Schistocytes Not Reportable 10/14/21 18:45 Malaria parasites Not Reportable 10/14/21 18:45 Denny Bodies Not Reportable 10/14/21 18:45 Hem Pathologist Commnt No 10/14/21 18:45 VBG pH 7.074 (7.320-7.420) L* 10/14/21 18:45 Sodium 133 mmol/L (137-145) L 10/15/21 04:08 Potassium 5.1 mmol/L (3.6-5.0) H 10/15/21 04:08 Chloride 103.2 mmol/L (98-107) 10/15/21 04:08 Carbon Dioxide 6 mmol/L (22-30) L* 10/15/21 04:08 Anion Gap 29 mmol/L 10/15/21 04:08 BUN 14 mg/dL (9-20) 10/15/21 04:08 Creatinine 1.3 mg/dL (0.8-1.3) 10/15/21 04:08 Estimated GFR > 60 ml/min 10/15/21 04:08 BUN/Creatinine Ratio 11 % 10/15/21 04:08 Glucose 187 mg/dL (75-100) H 10/15/21 04:08 POC Glucose 132 mg/dL (70-105) H 10/15/21 10:32 Calcium 8.8 mg/dL (8.4-10.2) 10/15/21 04:08 Phosphorus 3.30 mg/dL (2.5-4.5) 10/14/21 20:42 Magnesium 2.00 mg/dL (1.7-2.3) 10/14/21 20:42 Lipase 7 units/L (13-60) L 10/14/21 18:45 Cole/IV: Voiding Method Indwelling Catheter Active Medications - Current Medications Current Medications: Generic Name Dose Route Start Last Admin Trade Name Freq PRN Reason Stop Dose Admin Acetaminophen 650 mg 10/14/21 22:01 Acetaminophen 325 Mg Tab PO Q6H PRN Pain MILD(1-3)/Fever >100.5/HALL Dextrose 0 ml 10/14/21 22:01 Dextrose 50% In Water (25gm) 50 Ml Syringe IV Q30MIN PRN Hypoglycemia Protocol Famotidine 20 mg 10/15/21 10:00 10/15/21 09:39 Famotidine 20 Mg/2 Ml Inj IV 10/15/21 13:00 20 mg QDAY FAN Administration Famotidine 20 mg 10/16/21 10:00 Famotidine 20 Mg Tab PO QDAY FAN Heparin Sodium (Porcine) 5,000 unit 10/15/21 06:00 10/15/21 06:53 Heparin 5,000 Unit/1 Ml Vial SUB-Q 5,000 unit Q8HR FAN Administration Insulin Human Regular 100 100 mls @ 10 mls/hr 10/14/21 21:00 10/15/21 10:36 units/ Sodium Chloride IV 4 units/hr TITR FAN 4 mls/hr Titration Protocol 10 UNITS/HR Sodium Chloride 1,000 mls @ 150 mls/hr 10/14/21 22:15 10/15/21 03:00 Nacl 0.9% 1000 Ml IV 0 mls/hr DIRECT FAN Infusion Sodium Bicarbonate 100 meq/ 1,100 mls @ 150 mls/hr 10/15/21 03:00 10/15/21 03:12 Sodium Chloride IV 150 mls/hr DIRECT FAN Administration Dextrose/Sodium Chloride 1,000 mls @ 150 mls/hr 10/15/21 03:00 10/15/21 10:06 D5/0.45ns IV 150 mls/hr DIRECT FAN Administration Morphine Sulfate 2 mg 10/14/21 22:01 Morphine 2 Mg/1 Ml Inj IV Q4H PRN Pain, Moderate (4-6) Sodium Chloride 10 ml 10/15/21 10:00 10/15/21 09:41 Sodium Chloride 0.9% 10 Ml Flush Syringe IV 10 ml BID FAN Administration Sodium Chloride 10 ml 10/14/21 22:01 Sodium Chloride 0.9% 10 Ml Flush Syringe IV PRN PRN LINE FLUSH Nutrition/Malnutrition Assess - Dietary Evaluation Nutrition/Malnutrition Findings: Nutrition Notes Start: 10/15/21 10:51 Freq: Status: Active Protocol: Document 10/15/21 10:51 GAASHLEY (Rec: 10/15/21 10:56 NHALL [id number]) Nutrition Notes Need for Assessment generated from: MD Order,Education Current Diagnosis Diabetes Other Pertinent Diagnosis DKA, r/o COVID-19 Current Diet NPO Labs/Tests BG was 414 upon admission Pertinent Medications D5 1/2NS at 150ml/hr, Insulin gtt Height 6 ft 3 in Weight 108.8 kg [place] Body Weight (kg) 89.09 BMI 29.9 Weight Status Obese Subjective/Other Information RD consulted for diet education and NTR recommendations. Pt admitted with N/V; hx of medication non -compliance. Burn Absent Trauma Absent GI Symptoms Nausea,Vomiting Minimum of two criteria No #1 Nutrition Diagnosis Inadequate oral intake Etiology DKA As Evidenced by Signs and Symptoms pt NPO Is patient on ventilator? No Is Patient Ambulatory and/or Out of Bed No REE-([facility]-confined to bed) 2603.256 Kcal/Kg value to use for calculation 20 Approximate Energy Requirements Using 2176 kcal/Kg Calculation Used for Recommendations Kcal/kg Additional Notes Pro needs 2g/kg IBW: 178g/day Fluid needs 1ml/kcal Nutrition Intervention Change Diet Order: Advance diet to Consistent CHO when medically feasible Goal #1 Diet advancement to meet nutrient needs Goal #2 Improved BG control Anticipated Discharge Needs: CHO-controlled diet Follow-Up By: 10/19/21 Additional Comments F/U: diet advancement, diet education needs <RACHID CERVANTES - Last Filed: 10/16/21 07:27> Assessment and Plan Assessment and plan: I saw and evaluated the patient. I agree with the findings and the plan of care as documented in the Nurse Practitioner's~note, with the following corrections and additions. Hospitalist Physical - Constitutional Vitals: Temp Pulse Resp BP Pulse Ox 98.3 F 67 20 125/53 98 10/16/21 04:00 10/16/21 07:01 10/16/21 07:01 10/16/21 07:01 10/16/21 05:00 Results - Labs CBC & Chem 7: 10/16/21 04:20 10/16/21 04:20 Labs: Laboratory Last Values WBC 8.2 K/mm3 (4.5-11.0) 10/16/21 04:20 RBC 4.59 M/mm3 (3.65-5.03) 10/16/21 04:20 Hgb 12.2 gm/dl (11.8-15.2) D 10/16/21 04:20 Hct 36.9 % (35.5-45.6) D 10/16/21 04:20 MCV 80 fl (84-94) L 10/16/21 04:20 MCH 27 pg (28-32) L 10/16/21 04:20 MCHC 33 % (32-34) 10/16/21 04:20 RDW 15.4 % (13.2-15.2) H 10/16/21 04:20 Plt Count 228 K/mm3 (140-440) 10/16/21 04:20 Add Manual Diff Complete 10/14/21 18:45 Total Counted 100 10/14/21 18:45 Seg Neuts % (Manual) 83.0 % (40.0-70.0) H 10/14/21 18:45 Band Neutrophils % 2.0 % 10/14/21 18:45 Lymphocytes % (Manual) 7.0 % (13.4-35.0) L 10/14/21 18:45 Reactive Lymphs % (Man) 0 % 10/14/21 18:45 Monocytes % (Manual) 7.0 % (0.0-7.3) 10/14/21 18:45 Eosinophils % (Manual) 0 % (0.0-4.3) 10/14/21 18:45 Basophils % (Manual) 0 % (0.0-1.8) 10/14/21 18:45 Metamyelocytes % 1.0 % 10/14/21 18:45 Myelocytes % 0 % 10/14/21 18:45 Promyelocytes % 0 % 10/14/21 18:45 Blast Cells % 0 % 10/14/21 18:45 Nucleated RBC % Not Reportable 10/14/21 18:45 Seg Neutrophils # Man 12.5 K/mm3 (1.8-7.7) H 10/14/21 18:45 Band Neutrophils # 0.3 K/mm3 10/14/21 18:45 Lymphocytes # (Manual) 1.1 K/mm3 (1.2-5.4) L 10/14/21 18:45 Abs React Lymphs (Man) 0.0 K/mm3 10/14/21 18:45 Monocytes # (Manual) 1.1 K/mm3 (0.0-0.8) H 10/14/21 18:45 Eosinophils # (Manual) 0.0 K/mm3 (0.0-0.4) 10/14/21 18:45 Basophils # (Manual) 0.0 K/mm3 (0.0-0.1) 10/14/21 18:45 Metamyelocytes # 0.2 K/mm3 10/14/21 18:45 Myelocytes # 0.0 K/mm3 10/14/21 18:45 Promyelocytes # 0.0 K/mm3 10/14/21 18:45 Blast Cells # 0.0 K/mm3 10/14/21 18:45 WBC Morphology Not Reportable 10/14/21 18:45 Hypersegmented Neuts Not Reportable 10/14/21 18:45 Hyposegmented Neuts Not Reportable 10/14/21 18:45 Hypogranular Neuts Not Reportable 10/14/21 18:45 Smudge Cells Not Reportable 10/14/21 18:45 Toxic Granulation Not Reportable 10/14/21 18:45 Toxic Vacuolation Not Reportable 10/14/21 18:45 Dohle Bodies Not Reportable 10/14/21 18:45 Pelger-Huet Anomaly Not Reportable 10/14/21 18:45 Delaney Rods Not Reportable 10/14/21 18:45 Platelet Estimate Consistent w auto 10/14/21 18:45 Clumped Platelets Not Reportable 10/14/21 18:45 Plt Clumps, EDTA Not Reportable 10/14/21 18:45 Large Platelets Not Reportable 10/14/21 18:45 Giant Platelets Not Reportable 10/14/21 18:45 Platelet Satelliting Not Reportable 10/14/21 18:45 Plt Morphology Comment Not Reportable 10/14/21 18:45 RBC Morphology Not Reportable 10/14/21 18:45 Dimorphic RBCs Not Reportable 10/14/21 18:45 Polychromasia Not Reportable 10/14/21 18:45 Hypochromasia Not Reportable 10/14/21 18:45 Poikilocytosis 1+ 10/14/21 18:45 Anisocytosis 1+ 10/14/21 18:45 Microcytosis Not Reportable 10/14/21 18:45 Macrocytosis Not Reportable 10/14/21 18:45 Spherocytes Not Reportable 10/14/21 18:45 Pappenheimer Bodies Not Reportable 10/14/21 18:45 Sickle Cells Not Reportable 10/14/21 18:45 Target Cells Not Reportable 10/14/21 18:45 Tear Drop Cells Not Reportable 10/14/21 18:45 Ovalocytes 3+ 10/14/21 18:45 Helmet Cells Not Reportable 10/14/21 18:45 Saldaña-Minier Bodies Not Reportable 10/14/21 18:45 Frederick Rings Not Reportable 10/14/21 18:45 E[place]se Cells Not Reportable 10/14/21 18:45 Bite Cells Not Reportable 10/14/21 18:45 Crenated Cell Not Reportable 10/14/21 18:45 Elliptocytes Few 10/14/21 18:45 Acanthocytes (Spur) Not Reportable 10/14/21 18:45 Rouleaux Not Reportable 10/14/21 18:45 Hemoglobin C Crystals Not Reportable 10/14/21 18:45 Schistocytes Not Reportable 10/14/21 18:45 Malaria parasites Not Reportable 10/14/21 18:45 Denny Bodies Not Reportable 10/14/21 18:45 Hem Pathologist Commnt No 10/14/21 18:45 VBG pH 7.074 (7.320-7.420) L* 10/14/21 18:45 Sodium 137 mmol/L (137-145) 10/16/21 04:20 Potassium 3.6 mmol/L (3.6-5.0) 10/16/21 04:20 Chloride 103.6 mmol/L (98-107) 10/16/21 04:20 Carbon Dioxide 13 mmol/L (22-30) L 10/16/21 04:20 Anion Gap 24 mmol/L 10/16/21 04:20 BUN 9 mg/dL (9-20) 10/16/21 04:20 Creatinine 1.0 mg/dL (0.8-1.3) 10/16/21 04:20 Estimated GFR > 60 ml/min 10/16/21 04:20 BUN/Creatinine Ratio 9 % 10/16/21 04:20 Glucose 179 mg/dL (75-100) H 10/16/21 04:20 POC Glucose 349 mg/dL (70-105) H 10/15/21 21:41 Hemoglobin A1c 13.2 % (4-6) H 10/15/21 14:05 Calcium 8.1 mg/dL (8.4-10.2) L 10/16/21 04:20 Phosphorus 1.70 mg/dL (2.5-4.5) L 10/16/21 04:20 Magnesium 1.90 mg/dL (1.7-2.3) 10/16/21 04:20 Lipase 7 units/L (13-60) L 10/14/21 18:45 Urine Color Yellow (Yellow) 10/15/21 08:13 Urine Turbidity Clear (Clear) 10/15/21 08:13 Urine pH 5.0 (5.0-7.0) 10/15/21 08:13 Ur Specific [place] 1.030 (1.003-1.030) 10/15/21 08:13 Urine Protein 30 mg/dl mg/dL (Negative) 10/15/21 08:13 Urine Glucose (UA) Negative mg/dL (Negative) 10/15/21 08:13 Urine Ketones 3+ mg/dL (Negative) 10/15/21 08:13 Urine Blood Negative (Negative) 10/15/21 08:13 Urine Nitrite Negative (Negative) 10/15/21 08:13 Ur Reducing Substances Not Reportable 10/15/21 08:13 Urine Bilirubin Negative (Negative) 10/15/21 08:13 Urine Ictotest Not Reportable 10/15/21 08:13 Urine Urobilinogen 0.0 mg/dL (<2.0) 10/15/21 08:13 Ur Leukocyte Esterase Trace (Negative) 10/15/21 08:13 Urine WBC (Auto) 15.0 /HPF (0.0-6.0) H 10/15/21 08:13 Urine RBC (Auto) < 1.0 /HPF (0.0-6.0) 10/15/21 08:13 U Epithel Cells (Auto) < 1.0 /HPF (0-13.0) 10/15/21 08:13 Granular Casts 56 /LPF 10/15/21 08:13 Urine Mucus Few /HPF 10/15/21 08:13 Coronavirus (PCR) Negative (Negative) 10/15/21 09:35 Cole/IV: Voiding Method Indwelling Catheter Active Medications - Current Medications Current Medications: Generic Name Dose Route Start Last Admin Trade Name Freq PRN Reason Stop Dose Admin Acetaminophen 650 mg 10/14/21 22:01 10/15/21 19:46 Acetaminophen 325 Mg Tab PO 650 mg Q6H PRN Administration Pain MILD(1-3)/Fever >100.5/HALL Dextrose 50 ml 10/15/21 15:29 Dextrose 50% In Water (25gm) 50 Ml Syringe IV Q30MIN PRN Hypoglycemia Protocol Famotidine 20 mg 10/16/21 10:00 Famotidine 20 Mg Tab PO QDAY FAN Heparin Sodium (Porcine) 5,000 unit 10/15/21 06:00 10/16/21 06:00 Heparin 5,000 Unit/1 Ml Vial SUB-Q 5,000 unit Q8HR FAN Administration Insulin Human Regular 0 units 10/15/21 16:30 10/15/21 21:49 Insulin Regular, Human 100 Units/1 Ml SUB-Q 6 units ACHS FAN Administration Protocol Morphine Sulfate 2 mg 10/14/21 22:01 10/15/21 21:48 Morphine 2 Mg/1 Ml Inj IV 2 mg Q4H PRN Administration Pain, Moderate (4-6) Sodium Chloride 10 ml 10/15/21 10:00 10/15/21 21:49 Sodium Chloride 0.9% 10 Ml Flush Syringe IV 10 ml BID FAN Administration Sodium Chloride 10 ml 10/14/21 22:01 Sodium Chloride 0.9% 10 Ml Flush Syringe IV PRN PRN LINE FLUSH Nutrition/Malnutrition Assess - Dietary Evaluation Nutrition/Malnutrition Findings: Nutrition Notes Start: 10/15/21 10:51 Freq: Status: Active Protocol: Document 10/15/21 10:51 PAT (Rec: 10/15/21 10:56 PAT [id number]) Nutrition Notes Need for Assessment generated from: MD Order,Education Current Diagnosis Diabetes Other Pertinent Diagnosis DKA, r/o COVID-19 Current Diet NPO Labs/Tests BG was 414 upon admission Pertinent Medications D5 1/2NS at 150ml/hr, Insulin gtt Height 6 ft 3 in Weight 108.8 kg [place] Body Weight (kg) 89.09 BMI 29.9 Weight Status Obese Subjective/Other Information RD consulted for diet education and NTR recommendations. Pt admitted with N/V; hx of medication non -compliance. Burn Absent Trauma Absent GI Symptoms Nausea,Vomiting Minimum of two criteria No #1 Nutrition Diagnosis Inadequate oral intake Etiology DKA As Evidenced by Signs and Symptoms pt NPO Is patient on ventilator? No Is Patient Ambulatory and/or Out of Bed No REE-([facility]-confined to bed) 2603.256 Kcal/Kg value to use for calculation 20 Approximate Energy Requirements Using 2176 kcal/Kg Calculation Used for Recommendations Kcal/kg Additional Notes Pro needs 2g/kg IBW: 178g/day Fluid needs 1ml/kcal Nutrition Intervention Change Diet Order: Advance diet to Consistent CHO when medically feasible Goal #1 Diet advancement to meet nutrient needs Goal #2 Improved BG control Anticipated Discharge Needs: CHO-controlled diet Follow-Up By: 10/19/21 Additional Comments F/U: diet advancement, diet education needs
[2021-10-15] MEDS: INSULIN REGULAR, HUMAN 100 UNITS in SODIUM CHLORIDE 0.9% 99 ML IV SCH (11:33)
[2021-10-15] MEDS: ACETAMINOPHEN 325 MG TAB PO PRN ×2 (13:03→19:46)
[2021-10-15 14:56] LABS: BUN/Creatinine Ratio 10; Blood Urea Nitrogen 11 mg/dL (9-20); Calcium 8.1 mg/dL (8.4-10.2); Hemolysis Index 0
[2021-10-15 15:15] LABS: Granular Casts,Urine 56 /LPF; RBC,Urine < 1.0 /HPF (0.0-6.0)
[2021-10-15] MEDS ORDERED: DEXTROSE 50% IN WATER (25GM) 50 ML SYRINGE IV PRN (15:29)
[2021-10-15 15:44] LABS: Bilirubin,Urine Negative (Negative); Color,Urine Yellow (Yellow)
[2021-10-15 15:45] LABS: Blood,Urine Negative (Negative)
[2021-10-15 16:19] LABS: Mucus,Urine FEW /HPF
[2021-10-15] MEDS: INSULIN REGULAR, HUMAN 100 UNITS/1 ML SUB-Q SCH ×2 (16:33→21:49)
[2021-10-15] MEDS ORDERED: INSULIN GLARGINE 100 UNITS/ML SUB-Q SCH (17:00)
[2021-10-15] MEDS ORDERED: SODIUM PHOSPHATE 15 MMOL in SODIUM CHLORIDE 0.9% 250ML 250 ML IV ONE (18:00)
[2021-10-15 18:53] LABS: BUN/Creatinine Ratio 9; Blood Urea Nitrogen 10 mg/dL (9-20); Calcium 8.2 mg/dL (8.4-10.2); Hemolysis Index 8
[2021-10-15] MEDS ORDERED: POTASSIUM CHLORIDE ER 20 MEQ TAB PO SCH (20:00)
[2021-10-16 05:20] LABS: Hematocrit 36.9 % (35.5-45.6); Hemoglobin 12.2 gm/dl (11.8-15.2); Mean Corpuscular HGB Conc 33 % (32-34); Mean Corpuscular Volume 80 fl (84-94); Platelet Count 228 K/mm3 (140-440); Red Blood Count 4.59 M/mm3 (3.65-5.03); Red Cell Distribution Width 15.4 % (13.2-15.2)
[2021-10-16 05:51] LABS: BUN/Creatinine Ratio 9; Blood Urea Nitrogen 9 mg/dL (9-20); Calcium 8.1 mg/dL (8.4-10.2); Hemolysis Index 10
[2021-10-16] MEDS: HEPARIN 5,000 UNIT/1 ML VIAL SUB-Q SCH ×2 (06:00→15:23)
--- NOTE | 2021-10-16 07:42 | Progress Note ---
Assessment and Plan 21-year-old -Turkmen male with known history of diabetes mellitus presented to the emergency room , complaining of nausea and vomiting, sore throat and headache which has been ongoing for the past 3 to 4 days. He has therefore not been able to take his medications regularly secondary to the symptoms. He has also been having generalized body aches and pain. Denies any chest pain or shortness of breath. He denies any fever or chills, denies any sick contacts and no recent travel. Patient denies any contact with anyone with COVID-19. He however indicates that he has not received the COVID vaccination. Work-up in the emergency room , lab reveals hemoglobin of 15.3, hematocrit of 50.8, WBC of 15. Venous pH was 7.074. Anion gap of 38, CO2 of 5, blood glucose of 414. Potassium 5.4. Sodium 131. Patient has been admitted with DKA. He has been started on insulin drip on IV fluid. Patient denies other medical problems. Uses Occasional alcohol and Marijuana. No known drug allergies. Patient sleeping at this time. Patient is on room air. O2 saturation 100%. No acute respiratory distress at rest. Patient afebrile. No Leukocytosis. Blood pressure 115/53, Pulse 64 , respirations 18 Patients blood sugur and anion gap improved. last Blood sugur 234 and anion gap 19. Chest xray 10/16/21 reported No acute findings. Patient presently on S/C Insulin, S/C Heparin, Famotidine and K Phosphate. I spent critical care time of 35 minutes, review the chart, examine the patient, review labs and chest xray, talking to the nursing staff and respiratory therapy in this DKA patient with High anion gap. - Patient Problems (1) Diabetic ketoacidosis Status: Acute Plan to address problem: Improving. Management as per primary care. (2) High anion gap metabolic acidosis Status: Acute Plan to address problem: From DKA. Which is improved. To days anion gap 19. Subjective Date of service: 10/16/21 Interval history: 21-year-old -Turkmen male with known history of diabetes mellitus presented to the emergency room , complaining of nausea and vomiting, sore throat and headache which has been ongoing for the past 3 to 4 days. He has therefore not been able to take his medications regularly secondary to the symptoms. He has also been having generalized body aches and pain. Denies any chest pain or shortness of breath. He denies any fever or chills, denies any sick contacts and no recent travel. Patient denies any contact with anyone with COVID-19. He however indicates that he has not received the COVID vaccination. Work-up in the emergency room , lab reveals hemoglobin of 15.3, hematocrit of 50.8, WBC of 15. Venous pH was 7.074. Anion gap of 38, CO2 of 5, blood glucose of 414. Potassium 5.4. Sodium 131. Patient has been admitted with DKA. He has been started on insulin drip on IV fluid. Patient denies other medical problems. Uses Occasional alcohol and Marijuana. No known drug allergies. Patient sleeping at this time. Patient is on room air. O2 saturation 100%. No acute respiratory distress at rest. Patient afebrile. No Leukocytosis. Blood pressure 115/53, Pulse 64 , respirations 18 Patients blood sugur and anion gap improved. last Blood sugur 234 and anion gap 19. Chest xray 10/16/21 reported No acute findings. Patient presently on S/C Insulin, S/C Heparin, Famotidine and K Phosphate. Objective Vital Signs - 12hr 10/15/21 10/15/21 10/15/21 20:00 20:01 20:04 Temperature 98.1 F Pulse Rate 79 87 83 Pulse Rate [ 79 From Monitor] Respiratory 16 24 30 H Rate Blood Pressure 123/72 123/72 O2 Sat by Pulse 100 100 100 Oximetry 10/15/21 10/15/21 10/15/21 21:01 22:01 23:00 Temperature Pulse Rate 70 73 67 Pulse Rate [ From Monitor] Respiratory 36 H 29 H 21 Rate Blood Pressure 119/45 123/64 112/51 O2 Sat by Pulse 100 99 98 Oximetry 10/16/21 10/16/21 10/16/21 00:00 01:00 02:00 Temperature 98.0 F Pulse Rate 73 85 77 Pulse Rate [ 83 From Monitor] Respiratory 21 18 Rate Blood Pressure 116/47 121/59 127/54 O2 Sat by Pulse 98 97 98 Oximetry 10/16/21 10/16/21 10/16/21 03:00 04:00 05:00 Temperature 98.3 F Pulse Rate 66 62 67 Pulse Rate [ 61 From Monitor] Respiratory 20 20 Rate Blood Pressure 119/59 121/54 116/61 O2 Sat by Pulse 97 97 98 Oximetry 10/16/21 10/16/21 06:01 07:01 Temperature Pulse Rate 77 67 Pulse Rate [ From Monitor] Respiratory 19 20 Rate Blood Pressure 123/59 125/53 O2 Sat by Pulse Oximetry Constitutional: no acute distress, asleep Eyes: non-icteric ENT: oropharynx moist Neck: supple, no lymphadenopathy Effort: normal Ascultation: Bilateral: diminished breath sounds Cardiovascular: regular rate and rhythm Gastrointestinal: normoactive bowel sounds, soft, non-tender Integumentary: normal Extremities: no cyanosis, no edema Neurologic: pupils equal and round, other (Patient sleeping at this time.) Psychiatric: other (Sleeping at this time.) CBC and BMP: 10/16/21 04:20 10/16/21 13:12 Abnormal lab findings: Abnormal Labs 10/14/21 10/14/21 10/14/21 18:03 18:45 18:45 WBC 15.0 H RBC 5.87 H Hgb 15.3 H Hct 50.8 H MCV MCH 26 L MCHC 30 L RDW 16.2 H Seg Neuts % (Manual) 83.0 H Lymphocytes % (Manual) 7.0 L Seg Neutrophils # Man 12.5 H Lymphocytes # (Manual) 1.1 L Monocytes # (Manual) 1.1 H VBG pH Sodium 131 L Potassium 5.4 H Chloride 93.6 L Carbon Dioxide 5 L* Creatinine 1.4 H Glucose 414 H POC Glucose 452 H Hemoglobin A1c Calcium Phosphorus Lipase 7 L Urine WBC (Auto) 10/14/21 10/14/21 10/14/21 18:45 20:42 21:20 WBC RBC Hgb Hct MCV MCH MCHC RDW Seg Neuts % (Manual) Lymphocytes % (Manual) Seg Neutrophils # Man Lymphocytes # (Manual) Monocytes # (Manual) VBG pH 7.074 L* Sodium 132 L Potassium 5.8 H Chloride 92.4 L Carbon Dioxide 5 L* Creatinine Glucose 415 H POC Glucose 432 H Hemoglobin A1c Calcium Phosphorus Lipase Urine WBC (Auto) 10/14/21 10/14/21 10/15/21 22:39 23:33 00:14 WBC RBC Hgb Hct MCV MCH MCHC RDW Seg Neuts % (Manual) Lymphocytes % (Manual) Seg Neutrophils # Man Lymphocytes # (Manual) Monocytes # (Manual) VBG pH Sodium 130 L Potassium 5.8 H Chloride 97.6 L Carbon Dioxide 4 L* Creatinine 1.4 H Glucose 302 H POC Glucose 337 H 309 H Hemoglobin A1c Calcium Phosphorus Lipase Urine WBC (Auto) 10/15/21 10/15/21 10/15/21 00:34 01:31 02:42 WBC RBC Hgb Hct MCV MCH MCHC RDW Seg Neuts % (Manual) Lymphocytes % (Manual) Seg Neutrophils # Man Lymphocytes # (Manual) Monocytes # (Manual) VBG pH Sodium Potassium Chloride Carbon Dioxide Creatinine Glucose POC Glucose 264 H 258 H 200 H Hemoglobin A1c Calcium Phosphorus Lipase Urine WBC (Auto) 10/15/21 10/15/21 10/15/21 03:34 04:08 04:31 WBC RBC Hgb Hct MCV MCH MCHC RDW Seg Neuts % (Manual) Lymphocytes % (Manual) Seg Neutrophils # Man Lymphocytes # (Manual) Monocytes # (Manual) VBG pH Sodium 133 L Potassium 5.1 H Chloride Carbon Dioxide 6 L* Creatinine Glucose 187 H POC Glucose 210 H 218 H Hemoglobin A1c Calcium Phosphorus Lipase Urine WBC (Auto) 10/15/21 10/15/21 10/15/21 05:30 06:26 07:34 WBC RBC Hgb Hct MCV MCH MCHC RDW Seg Neuts % (Manual) Lymphocytes % (Manual) Seg Neutrophils # Man Lymphocytes # (Manual) Monocytes # (Manual) VBG pH Sodium Potassium Chloride Carbon Dioxide Creatinine Glucose POC Glucose 182 H 151 H 140 H Hemoglobin A1c Calcium Phosphorus Lipase Urine WBC (Auto) 10/15/21 10/15/21 10/15/21 08:13 08:30 09:38 WBC RBC Hgb Hct MCV MCH MCHC RDW Seg Neuts % (Manual) Lymphocytes % (Manual) Seg Neutrophils # Man Lymphocytes # (Manual) Monocytes # (Manual) VBG pH Sodium Potassium Chloride Carbon Dioxide Creatinine Glucose POC Glucose 142 H 138 H Hemoglobin A1c Calcium Phosphorus Lipase Urine WBC (Auto) 15.0 H 10/15/21 10/15/21 10/15/21 10:32 11:38 12:36 WBC RBC Hgb Hct MCV MCH MCHC RDW Seg Neuts % (Manual) Lymphocytes % (Manual) Seg Neutrophils # Man Lymphocytes # (Manual) Monocytes # (Manual) VBG pH Sodium Potassium Chloride Carbon Dioxide Creatinine Glucose POC Glucose 132 H 120 H 158 H Hemoglobin A1c Calcium Phosphorus Lipase Urine WBC (Auto) 10/15/21 10/15/21 10/15/21 13:37 14:05 14:05 WBC RBC Hgb Hct MCV MCH MCHC RDW Seg Neuts % (Manual) Lymphocytes % (Manual) Seg Neutrophils # Man Lymphocytes # (Manual) Monocytes # (Manual) VBG pH Sodium 136 L Potassium Chloride Carbon Dioxide 17 L D Creatinine Glucose 144 H POC Glucose 169 H Hemoglobin A1c 13.2 H Calcium 8.1 L Phosphorus 1.40 L D Lipase Urine WBC (Auto) 10/15/21 10/15/21 10/15/21 14:32 15:33 16:29 WBC RBC Hgb Hct MCV MCH MCHC RDW Seg Neuts % (Manual) Lymphocytes % (Manual) Seg Neutrophils # Man Lymphocytes # (Manual) Monocytes # (Manual) VBG pH Sodium Potassium Chloride Carbon Dioxide Creatinine Glucose POC Glucose 132 H 119 H 132 H Hemoglobin A1c Calcium Phosphorus Lipase Urine WBC (Auto) 10/15/21 10/15/21 10/16/21 17:59 21:41 04:20 WBC RBC Hgb Hct MCV 80 L MCH 27 L MCHC RDW 15.4 H Seg Neuts % (Manual) Lymphocytes % (Manual) Seg Neutrophils # Man Lymphocytes # (Manual) Monocytes # (Manual) VBG pH Sodium 134 L Potassium 3.5 L Chloride Carbon Dioxide 18 L Creatinine Glucose 183 H POC Glucose 349 H Hemoglobin A1c Calcium 8.2 L Phosphorus 1.70 L D Lipase Urine WBC (Auto) 10/16/21 10/16/21 04:20 07:27 WBC RBC Hgb Hct MCV MCH MCHC RDW Seg Neuts % (Manual) Lymphocytes % (Manual) Seg Neutrophils # Man Lymphocytes # (Manual) Monocytes # (Manual) VBG pH Sodium Potassium Chloride Carbon Dioxide 13 L Creatinine Glucose 179 H POC Glucose 199 H Hemoglobin A1c Calcium 8.1 L Phosphorus 1.70 L Lipase Urine WBC (Auto) Chest x-ray: report reviewed, image reviewed Additional Studies: CHEST 1 VIEW 10/16/21 INDICATION: Nausea, vomiting,possible aspiration.. COMPARISON: None FINDINGS: SUPPORT DEVICES: None. HEART: Within normal limits. LUNGS/PLEURA: No acute air space or interstitial disease. ADDITIONAL FINDINGS: None. IMPRESSION: 1. No acute findings.
[2021-10-16] MEDS ORDERED: SODIUM BICARB 8.4% 50 MEQ/50 ML SYRINGE IV NR (08:19)
[2021-10-16] MEDS: INSULIN REGULAR, HUMAN 100 UNITS/1 ML SUB-Q SCH ×3 (08:48→16:05)
[2021-10-16] MEDS ORDERED: POTASSIUM PHOSPHATE 30 MMOL in SODIUM CHLORIDE 0.9% 500 ML 500 ML IV ONE (09:00)
--- NOTE | 2021-10-16 09:53 | Consultation ---
DATE OF CONSULTATION: 10/15/2021 CONSULTING PHYSICIAN: Dr. Kurt Ames. REASON FOR CONSULTATION: Diabetic ketoacidosis, possible COVID-19 infection. CHIEF COMPLAINT AND HISTORY OF PRESENT ILLNESS: The patient is a now 21-year-old -Scottish male with past medical history significant for diabetes mellitus, diagnosed when he was in the 8th grade, presented to the Emergency Room yesterday complaining of nausea, vomiting, sore throat, headaches and some abdominal pain. It had been going on for about 3-4 days. He has not been able to take his medications. He mentioned he was on insulin at home, but has not been taking them. He also complained of generalized body aches. He denied any chest pain, shortness of breath. Denied hemoptysis. He denied fevers or chills. He denied any new-onset leg pain or swelling, either unilaterally or bilaterally or any suggestion of a deep venous thrombosis. He denies being vaccinated for COVID-19 infection, but also states he has not been in contact with anyone with the disease. In the Emergency Room, he was evaluated and found to be in diabetic ketoacidosis, but also admitted and isolated while COVID-19 testing was done. We are asked to assist with management. When I stopped by to see him, he remained in the critical care unit and on IV insulin drip at 3 units per minute. He was feeling a little bit better. The nausea was better. He had not had any vomiting this morning. He denied any new lumps, bumps or swellings or any open sores or wounds on his body. He denies any dysuria or hematuria. This really is as much of the history of presentation as I have. PAST MEDICAL HISTORY: Diabetes. He is obese. PAST SURGICAL HISTORY: Denies. MEDICATIONS: He was on at the time I stopped by to see him according to the medication physician record included the following: Tylenol 650 mg p.o. q. 6 hours p.r.n. mild pain or fevers, D5 half NS at 150 mL per hour, Pepcid 20 mg IV daily, heparin 5000 units subcutaneous q. 8 hours. IV insulin drip was going at 3 units per hour, had been started at 10 units per hour. Morphine sulfate 2 mg IV q. 4 hours p.r.n. moderate pain. He received sodium bicarbonate drip 100 mEq and sodium chloride at 150 mL per hour . ALLERGIES: No known drug allergies. DIET: Obese gentleman. Denies acute weight loss or gain in the preceding few weeks to months. FAMILY AND SOCIAL HISTORY: Lives in the community. States he does smoke tobacco. He is willing to quantify it. He also gives a history of occasional alcohol use and marijuana use in the Emergency Room. FAMILY HISTORY: Otherwise, noncontributory. REVIEW OF SYSTEMS: No loss of consciousness. No new onset seizures. No new onset focal weakness. Denies gross hematochezia or melena. Denies gross hematuria. Denies hematemesis. Denies hemoptysis. He denied heat or cold intolerance. He admitted to some polydipsia, polyuria. Complete 13-system review of systems was obtained. Pertinent positives and/or negatives as in body of history above, otherwise noncontributory. PHYSICAL EXAMINATION: VITAL SIGNS: Since he has been afebrile presentation, temperature degrees Fahrenheit, pulse of 105, respiratory rate of 18, blood pressure 160/80, O2 sats were 99% at the time I saw him, he was on room air. GENERAL: He is an obese young male. Normocephalic, atraumatic. Talking to me in full sentences with normal respiratory effort at rest. HEAD, EYES, EARS, NOSE AND THROAT: Anicteric. No conjunctival erythema. Oropharynx was moist. NECK: No gross jugular venous distention, no thyromegaly. Grossly, there were no palpable lymph nodes in the supraclavicular or submandibular lymph node chains. LUNGS: Auscultation of both lung abad unremarkable. Good bilateral air movement. No wheezing. HEART: Sounds 1 and 2 are heard, regular rate and rhythm at the time of my evaluation without overt rubs or murmurs. ABDOMEN: Soft, full, bowel sounds are positive, nontender, no palpable hepatosplenomegaly. EXTREMITIES: Without overt digital clubbing or cyanosis. No pedal edema. Pedal pulses are 2+ bilaterally. NEUROLOGIC: Pupils are equal, round, about 4 mm, reactive to light. Extraocular muscle movements are intact. He moves all 4 extremities spontaneously. SKIN: Normal turgor in the areas I examined without overt cellulitis or rash. Please see the wound care nurses' notes for full description of his skin. PSYCHIATRIC: Mood was normal. Affect was appropriate. He had intact judgment and insight. LABORATORY DATA: From my review are as follows: Admission white cell count 15,000, hemoglobin 15.3, hematocrit 50.8, platelet count 342, 2% band neutrophils. Blood gas showed a pH of 7.07. Serum sodium was 131, potassium 5.4, chloride 94, bicarbonate was 5, BUN was 12, creatinine was 1.4, glucose was 414. Lipase within normal limits. No microbiology studies. No radiographic studies for my review. ASSESSMENT: 1. Diabetic ketoacidosis. 2. Nausea and vomiting. 3. Hyperkalemia. 4. Acute kidney injury. 5. Possible viral syndrome. PLAN: We will keep him in airborne and contact isolation until COVID-19 serologies come back. For now, he will be continued on the DKA protocol on IV insulin drip until his anion gap closes. Clinically, he is doing better. He will remain n.p.o. for now. No acute indication for empiric antibiotic therapy. Azotemia is getting better. Serum creatinine is improving. The gap is closing. He is appropriately on GI and DVT prophylaxis. Tobacco abstinence has been strongly counseled at the bedside. Flu and pneumonia vaccination will be addressed per protocol. Thank you very much for the consult. We will follow along and make further recommendations as picture progresses/becomes clearer. TID: [id number] RECEIPT: [id number] BERNICE/JOANNE/RAMONA
[2021-10-16] MEDS ORDERED: FAMOTIDINE 20 MG TAB PO SCH (10:00)
--- NOTE | 2021-10-16 10:22 | XRay Report ---
CHEST 1 VIEW INDICATION: Nausea, vomiting,possible aspiration.. COMPARISON: None FINDINGS: SUPPORT DEVICES: None. HEART: Within normal limits. LUNGS/PLEURA: No acute air space or interstitial disease. ADDITIONAL FINDINGS: None. IMPRESSION: 1. No acute findings. Signer Name: Fran Lim MD Signed: 10/16/2021 10:18 AM Workstation Name: [id number]
[2021-10-16 14:56] LABS: BUN/Creatinine Ratio 6; Blood Urea Nitrogen 7 mg/dL (9-20); Calcium 8.8 mg/dL (8.4-10.2); Hemolysis Index 0
--- NOTE | 2021-10-16 15:21 | Discharge Summary ---
<SAEID GOOD - Last Filed: 10/16/21 19:19> Providers - Providers Date of Admission: 10/14/21 22:02 Date of discharge: 10/16/21 Attending physician: RACHID CERVANTES MD 10/14/21 22:02 Consult to Dietitian/Nutrition [CONS] Routine Physician Instructions: Reason For Exam: Reason for Consult: Diet education Consult to Dietitian/Nutrition [CONS] Routine Physician Instructions: Reason For Exam: DKA Reason for Consult: Nutrition Recommendations Reason for Consult: Diet education Consult to Physician [CONS] Routine Comment: Consulting Provider: TAVIA MCKINNON Physician Instructions: Reason For Exam: DKA- ON INSULIN DRIP Primary care physician: JEREMIAS FELIX Hospitalization Reason for admission: DKA Condition: Stable Hospital course: This is a 21-year-old AA male with known past medical history of type 1 diabetes admitted for DKA Hospital Course to Date: 10/15: Remains with severe metabolic acidosis on Bcarb gtt. Additional IVF bolus administered, continue insulin gtt and IVF resuscitation per DKA protocol. Will transition of subQ insulin once acidosis resolved. Leukocytosis is most likely reactive, due to DKA. Patient remains afebrile, VSS. COVID PCR pending. Will continue to monitor, trend CBC. 10/16: Transitioned to SubQ insulin overnight. Anion gap and BG stable this am. CO2 level mormalized post 1amp of bcarb and electrolytes repleted. Plan is stable for discharge home today. Plan discussed with patient at the bedside. Resume home insulin regimen and follow up with primary care provider within 7 days for further management. Patient verbalized understanding and agreed with current care plan Assessment and Plan #DKA (Diabetic Ketoacidosis) #Severe Metabolic Acidosis #Type 1 Diabetes Mellitus - Presented with nausea and vomiting, sore throat and headache X4days, with high BG, severe acidosis, UA + ketones - Patient reported recent that he had a cold recently then he ran out of his long-acting insulin and he couldn't go pick his meds from the pharmacy due to his sx - HgbA1C 13.2 - s/p DKA protocol - Transitioned to home regimen - electrolytes repleted. - Consistent carbs diet #Nausea/Vomiting #Headache - proabably secondary to DKA - s/p DKA protocol - symptoms resolved this am - PRN antiemetic for N/V - PRN Analgesia for pain control #Hyponatremia #Hyperkalemia-improved #Volume Depletion/Dehydration - secondary to above - Continue IVF hydration per DKA protocol - Monitor and replace electrolytes as needed #Leukocytosis #COVID PUI - probably reactive to DKA - Patient reported sore throat and recent cold/flu like sx with generalized body aches and pain - COVID PCR negative - Continue to monitor for now #GI/DVT Prophylaxis - PPI- Pepcid - SCDs to bilateral lower extremities while in bed #Advance Care Planning - Disease education data, care plan, diagnoses, and prognosis were discussed with patient at the bedside. Patient is a FULL code. Patient acknowledged understanding and agreed with current care plan. Disposition: HOME / SELF CARE / HOMELESS Final Discharge Diagnosis (Prints w/discharge instructions): Type 1 Diabetes Mellitus Time spent for discharge: 35 Core Measure Documentation - Palliative Care Palliative Care/ Comfort Measures: Not Applicable - Core Measures Any of the following diagnoses?: none Exam - Constitutional Vitals: Temp Pulse Resp BP Pulse Ox 97.8 F 60 20 130/66 100 10/16/21 12:00 10/16/21 14:00 10/16/21 14:00 10/16/21 14:00 10/16/21 14:00 General appearance: Present: no acute distress, well-nourished, obese - EENT Eyes: Present: PERRL ENT: hearing intact - Neck Neck: Present: normal ROM - Respiratory Respiratory effort: normal Respiratory: bilateral: CTA - Cardiovascular Rhythm: regular Heart Sounds: Present: S1 & S2 - Extremities Extremities: no ischemia, pulses intact, pulses symmetrical Peripheral Pulses: within normal limits - Abdominal General gastrointestinal: Present: soft, non-distended, normal bowel sounds Male genitourinary: Present: deferred - Rectal Rectal Exam: deferred - Integumentary Integumentary: Present: clear, warm, dry - Musculoskeletal Musculoskeletal: strength equal bilaterally - Psychiatric Psychiatric: appropriate mood/affect, cooperative - Neurologic Neurologic: CNII-XII intact, moves all extremities - Allied Health Allied health notes reviewed: nursing, case management Plan Activity: no restrictions Diet: diabetic, low carbohydrate Wound: open to air Care Plan Goals: Maintain medication compliance and take your medications as prescribed Stay hydrate, drink plenty of water Follow up with your primary care provider within 7 days for further management of your DM If you symptoms return and worsen please visit your nearest emergency department for further evaluation and treatment Follow up with: JEREMIAS FELIX MD [Primary Care Provider] - 7 Days Prescriptions: Insulin Glargine,Hum.rec.anlog [Basaglar Kwikpen U-100] 50 unit SQ QHS 90 Days Insulin Lispro [Admelog] See Protocol SQ AC 90 Days vial Other Discharge Orders: Glucometer (Amb) Location: None Selected Glucometer supplies[Amb] Location: None Selected Test Strips for Blood Sugar Monitoring Location: None Selected <RACHID CERVANTES - Last Filed: 10/17/21 07:12> Providers - Providers Date of Admission: 10/14/21 22:02 Attending physician: RACHID CERVANTES MD 10/14/21 22:02 Consult to Dietitian/Nutrition [CONS] Routine Physician Instructions: Reason For Exam: Reason for Consult: Diet education Consult to Dietitian/Nutrition [CONS] Routine Physician Instructions: Reason For Exam: DKA Reason for Consult: Nutrition Recommendations Reason for Consult: Diet education Consult to Physician [CONS] Routine Comment: Consulting Provider: TAVIA MCKINNON Physician Instructions: Reason For Exam: DKA- ON INSULIN DRIP Primary care physician: JEREMIAS FELIX Hospitalization Hospital course: I saw and evaluated the patient. I agree with the findings and the plan of care as documented in the Nurse Practitioner's~note, with the following corrections and additions. Exam - Constitutional Vitals: Temp Pulse Resp BP Pulse Ox 97.8 F 61 19 132/73 99 10/16/21 12:00 10/16/21 16:00 10/16/21 16:00 10/16/21 16:00 10/16/21 16:00
[2021-10-16] MEDS ORDERED: INSULIN GLARGINE 100 UNITS/ML SUB-Q SCH (15:22)
[2021-10-16] MEDS: ACETAMINOPHEN 325 MG TAB PO PRN (16:05)
[2021-10-16 17:52] VITALS: BP 132/73
== END 2021-10-16 16:30 | disposition home or self-care (01) | DRG 638 ==
LOC: ED 18:01 → CC1 22:02
PROVIDERS: ADMIT Internal Medicine Geriatric Medicine; ATTEND Internal Medicine
DX: E10.10 Type 1 diabetes mellitus with ketoacidosis without coma (principal); E87.1 Hypo-osmolality and hyponatremia; Z20.822 Contact with and (suspected) exposure to COVID-19; E87.5 Hyperkalemia; Z79.4 Long term (current) use of insulin; D72.829 Elevated white blood cell count, unspecified
CPT/HCPCS: 36415; 71045; 80048; 81001; 82805; 82962; 83036; 83690; 83735; 84100; 85007; 85025; 85027; 87086; G0378; J3490; J7070; J7510; Q9967; J1644; J1815; J1885; J2270; J2405; J2765; J3010; J7030; J7040; J7050; J7120; U0003